=== PATIENT | male | born 1960 | race Two or more races ===

== ENCOUNTER 2016-11-06 11:45 | Inpatient (IN) | payer MEDICAID ==
[~2016-11-06] VITALS: Ht 175.3 cm; Wt 95.3 kg
[~2016-11-06 11:45] MED LIST: BENAZEPRIL HCL20 MG ORAL; CEPHALEXIN500 MG ORAL; GABAPENTIN600 MG ORAL; GLYBURIDE5 MG PO; IBUPROFEN600 MG ORAL; JANUVIA25 MG ORAL; METFORMIN HCL1000 M1 ORAL; PERCOCET 5-3251 EACH ORAL; VALACYCLOVIR500 MG ORAL; ZOSTRIX HP56.6 G1 TP
[2016-11-06] MEDS ORDERED: Vancomycin 1.5gm/D5W 300ml 325 ML IVPB ONE (12:45)
[2016-11-06] MEDS ORDERED: fentaNYL 100 mcg/2 mL IV ONE (12:45)
[2016-11-06] MEDS ORDERED: CLINDAMYCIN HC300 MG ORAL (12:49)
[2016-11-06] MEDS ORDERED: ACETAMINOPHEN-1 EAC1 ORAL (12:49)
--- NOTE | 2016-11-06 12:57 | Emergency Room Report ---
History of Present Illness General Chief Complaint: Skin Rash/Abscess Source: Patient, Medical Record Present Illness HPI 56YO M with 2 days severe pain to midline upper back below neck. Denies pain to neck, reduced ROM of neck, headache. Associated with chills, afebrile. Not taking anything for pain. Per EMR, was tx in Nov for shingles. Allergies: Coded Allergies: No Known Allergies (Verified Allergy, Mild, 01/23/07) Patient History Past Medical History: other - Shingles Past Surgical History: none Pertinent Family History: none Social History: Denies: alcohol use, drug use, smoking Immunizations: UTD Reviewed Nursing Documentation: PMH: Agreed, PSxH: Agreed Nursing Documentation-PMH Hx Hypertension: Yes Hx Diabetes: Yes Review of Systems All Other Systems: negative except mentioned in HPI Physical Exam Vital Signs Date Time Temp Pulse Resp B/P Pulse Ox O2 Delivery O2 Flow Rate FiO2 11/06/16 12:03 102.7 116 20 119/70 95 Room Air Sp02 EP Interpretation: reviewed, abnormal General Appearance: normal inspection, well appearing, no apparent distress, alert, GCS 15, non-toxic Head: normocephalic, atraumatic Eyes: bilateral eye EOMI, bilateral eye PERRL ENT: normal ENT inspection, hearing grossly normal, normal voice Neck: normal inspection, full range of motion, supple, no meningismus, no bony tend Respiratory: normal inspection, lungs clear, normal breath sounds, no respiratory distress, no retraction, no wheezing Cardiovascular #1: regular rate, rhythm, no edema Gastrointestinal: normal inspection, normal bowel sounds, non tender, soft, no guarding, no hernia Genitourinary: no CVA tenderness Musculoskeletal: normal inspection, back normal, normal range of motion, Brayden' s Sign negative Neurologic: normal inspection, alert, oriented x3, responsive, electronic die maker III-XII nml as tested, motor strength/tone normal, speech normal Psychiatric: normal inspection, judgement/insight normal, mood/affect normal Skin: normal inspection, normal color, other - Below neck midline of shoulders : there is an 8 cm area square shaped of induration, very tender to palpation. Middle of this area are 2 pustules, not actively draining. This area overlies multiple areas of burned out vesicels on back, left side of neck and face Medical Decision Making Diagnostic Impression: Primary Impression: Abscess Additional Impressions: Sepsis affecting skin Diabetes Qualified Codes: E11.9 - Type 2 diabetes mellitus without complications ER Course 56YOM with large area of cellulitis vs abscess to midline nape. VS significant for tachycardia, fever SIRS criteria met ?sepsis although normotensive, not appearing systemically ill Labs: 17K. Glucose >300 IV Abx given Blood Cx pending PNA ruled out as source of sepsis on normal CXR Endorsed for transfer to outside hospital at 325pm Tele bed recommended for SIRS/sepsis Rhythm Strip Diag. Results EP Interpretation: yes Rate: 88 Rhythm: NSR, no PVC's, no ectopy Chest X-Ray Diagnostic Results EP Interpretation: Yes Findings: no consolidation, no effusion, no pneumothorax, no acute cardiopulmonary disease Number of Views: 1 Last Vital Signs Date Time Temp Pulse Resp B/P Pulse Ox O2 Delivery O2 Flow Rate FiO2 11/06/16 12:03 102.7 116 20 119/70 95 Room Air Status: improved Disposition: ADMITTED INPATIENT Condition: Serious Scripts Acetaminophen With Codeine (T#3) (TYLENOL #3 TAB*) Y Tab 2 TAB ORAL Q6H Y for For Pain for 10 Days, #30 TAB Prov: STAS LEDESMA M.D. 11/06/16 Clindamycin Hcl (CLINDAMYCIN HCL) 300 Mg Capsule 600 MG ORAL THREE TIMES A DAY for 10 Days, #60 CAP Prov: STAS LEDESMA M.D. 11/06/16 Referrals: [facility],REFERRING (PCP) Patient Instructions: Abscess Additional Instructions: - Take ALL the antibiotics as prescribed - Take T#3 as needed for pain - Return to ER for worsening pain, abscess or other concerning symptoms and you will likely be admitted for recommended IV antibiotics STAS LEDESMA M.D. Nov 06, 2016 12:57
[2016-11-06 13:00] VITALS: BP 137/76
[2016-11-06] MEDS ORDERED: Unasyn 3gm Inj ONE (13:04)
[2016-11-06] MEDS ORDERED: Acetaminophen 500mg (ES) tab ORAL ONE ×2 (13:04→13:15)
[2016-11-06] MEDS: Ampicillin/Sulbactam Sod 3 GM in NS 110 ML IV SCH ×2 (13:07→18:45)
[2016-11-06 13:22] LABS: BASOPHILS % (AUTO) 1.7 % (0.0-2.0); EOSINOPHILS % (AUTO) 0.1 % (0.0-3.0); LYMPHOCYTES % (AUTO) 9.9 % (20.0-45.0); MEAN CORPUSCULAR HGB CONC 33.9 G/DL (32.0-36.0); MEAN CORPUSCULAR VOLUME 89 FL (80-99); MEAN PLATELET VOLUME 8.2 FL (6.5-10.1); MONOCYTES % (AUTO) 11.6 % (1.0-10.0); NEUTROPHILS % (AUTO) 76.7 % (45.0-75.0); PLATELET COUNT 244 K/UL (150-450); RED BLOOD COUNT 5.16 M/UL (4.70-6.10); RED CELL DISTRIBUTION WIDTH 11.3 % (11.6-14.8)
[2016-11-06 13:32] LABS: ALANINE AMINOTRANSFERASE 16 U/L (3-41); ALBUMIN/GLOBULIN RATIO 1.1 (1.0-2.7); ANION GAP 16 (5-15); ASPARTATE AMINO TRANSFERASE 11 U/L (5-40); CALCIUM 9.4 mg/dL (8.6-10.2); CARBON DIOXIDE 26 mEQ/L (20-30); CHLORIDE 87 mEQ/L (98-107); CREATININE 1.2 mg/dL (0.7-1.2); GLOMERULAR FILTRATION RATE > 60 mL/min (>60); HEMOLYSIS 4; POTASSIUM 4.5 mEQ/L (3.4-4.9); SODIUM 129 mEQ/L (135-145); TOTAL PROTEIN 8.1 g/dL (6.6-8.7)
[2016-11-06 13:44] LABS: BILIRUBIN,DIRECT 0.2 mg/dL (0.1-0.3)
[2016-11-06 15:14] VITALS: BP 113/63
[2016-11-06 16:06] VITALS: BP 133/84
[2016-11-06] MEDS ORDERED: DuoNeb 0.5-3(2.5)mg/3ml neb HHN PRN (17:45)
[2016-11-06] MEDS ORDERED: Miralax 17gm pkt ORAL PRN (17:45)
[2016-11-06] MEDS ORDERED: Nitroglycerin Subl 0.4mg tab (Bottle Of 25) SL PRN (17:45)
[2016-11-06 18:57] VITALS: BP 102/53
[2016-11-06 21:10] VITALS: BP 117/63
[2016-11-06] MEDS: Cefepime HCl 2 GM in D5W 110 ML IV SCH (22:07)
[2016-11-06] MEDS: Heparin 5000 units/ml inj SUBQ SCH (22:08)
[2016-11-06] MEDS: NovoLOG Insulin Flexpen SUBQ SCH (22:38)
[2016-11-07] VITALS: BP 107/53
[2016-11-07] MEDS: Vancomycin 750 MG in D5W 275 ML IVPB SCH ×2 (01:42→14:35)
[2016-11-07] MEDS: Promethazine/Codeine 5ml UD ORAL PRN (01:42)
[2016-11-07 04:00] VITALS: BP 123/59
[2016-11-07] MEDS: NovoLOG Insulin Flexpen SUBQ SCH ×4 (05:54→20:27)
[2016-11-07 07:21] LABS: MEAN CORPUSCULAR HEMOGLOBIN 30.8 PG (27.0-31.0); MEAN CORPUSCULAR HGB CONC 34.8 G/DL (32.0-36.0); MEAN CORPUSCULAR VOLUME 89 FL (80-99); RED BLOOD COUNT 4.38 M/UL (4.70-6.10); RED CELL DISTRIBUTION WIDTH 11.4 % (11.6-14.8); WHITE BLOOD COUNT 17.7 K/UL (4.8-10.8)
[2016-11-07 07:22] LABS: BASOPHILS % (AUTO) 0.6 % (0.0-2.0); EOSINOPHILS % (AUTO) 0.3 % (0.0-3.0); LYMPHOCYTES % (AUTO) 10.7 % (20.0-45.0); MEAN PLATELET VOLUME 8.3 FL (6.5-10.1); MONOCYTES % (AUTO) 12.8 % (1.0-10.0); NEUTROPHILS % (AUTO) 75.6 % (45.0-75.0); PLATELET COUNT 214 K/UL (150-450)
[2016-11-07 08:00] VITALS: BP 133/78
[2016-11-07 08:12] LABS: ALANINE AMINOTRANSFERASE 12 U/L (3-41); ANION GAP 16 (5-15); ASPARTATE AMINO TRANSFERASE 11 U/L (5-40); CALCIUM 8.8 mg/dL (8.6-10.2); CARBON DIOXIDE 23 mEQ/L (20-30); CHLORIDE 92 mEQ/L (98-107); CREATININE 0.9 mg/dL (0.7-1.2); GLOMERULAR FILTRATION RATE > 60 mL/min (>60); HEMOLYSIS 2; POTASSIUM 3.9 mEQ/L (3.4-4.9); SODIUM 131 mEQ/L (135-145); TOTAL PROTEIN 6.9 g/dL (6.6-8.7)
[2016-11-07] MEDS: Morphine Sulfate 2mg/ml Inj IVP PRN (09:16)
[2016-11-07] MEDS: Cefepime HCl 2 GM in D5W 110 ML IV SCH ×2 (09:16→20:26)
[2016-11-07] MEDS: sitaGLIPtin 50mg tab ORAL SCH (09:16)
[2016-11-07] MEDS: Heparin 5000 units/ml inj SUBQ SCH ×2 (09:19→20:29)
--- NOTE | 2016-11-07 10:58 | Consultation ---
Consult Note Consult Note asked to eval for low Na Chief Complaint: Skin Rash/Abscess 56YO M with 2 days severe pain to midline upper back below neck. Denies pain to neck, reduced ROM of neck, headache. Associated with chills, afebrile. Not taking anything for pain. Per EMR, was tx in Nov for shingles. No Known Allergies (Verified Allergy, Mild, 01/23/07) Past Medical History: other - Shingles Hx Hypertension: Yes Hx Diabetes: Yes Skin: normal inspection, normal color, other - Below neck midline of shoulders : there is an 8 cm area square shaped of induration, very tender to palpation. Middle of this area are 2 pustules, not actively draining. This area overlies multiple areas of burned out vesicels on back, left side of neck and face Assessment/Plan HypoNatremia: ? Depletional, Partly related to high sugar DM HTN Plan: Ua U Os NS infusion Monitor lytes and renal parameters- Keep BP and BS in check LEXIS GEE Nov 07, 2016 10:57
--- NOTE | 2016-11-07 11:48 | Diagnostic Imaging Report ---
Indication: Chest Pain Comparison: None A single view chest radiograph was obtained. Findings: Cardiomediastinal appearance is within normal limits for age. Pulmonary vascularity is appropriate. The diaphragmatic contour is smooth and costophrenic angles are sharp. No pleural effusions are identified. The bones are unremarkable. Impression: No acute findings
[2016-11-07 12:00] VITALS: BP 126/74
--- NOTE | 2016-11-07 12:12 | History and Physical ---
History of Present Illness General Date patient seen: Nov 07, 2016 Time patient seen: 12:00 Reason for Hospitalization: Skin Rash/Abscess Present Illness HPI 56y/old male with 2 days severe pain to midline upper back below neck. Denied neck pain, no reduced ROM of neck, no headache. Reported fevers and chills at home patient was treated in April for shingles. in ED febrile- 102.7, tachycardic laboratory work with leukocytosis- 17 Glucose >300 ( hx of DM) Na-129, lactic acid- WNl in ED blood cx were drawn IV Abx given PNA was ruled out as source of sepsis by stable CXR Patient was diagnosed with cellulitis vs abscess upper back patient was admitted for further management Allergies: Coded Allergies: No Known Allergies (Verified Allergy, Mild, 01/23/07) Medication History Scheduled Benazepril Hcl* (Benazepril Hcl*), 20 MG ORAL EVERY 12 HOURS, (Reported) Capsaicin (Zostrix Hp), 1 APPLIC TP BID Cephalexin* (Keflex*), 500 MG ORAL EVERY 12 HOURS Clindamycin Hcl (Clindamycin Hcl), 600 MG ORAL THREE TIMES A DAY Gabapentin* (Gabapentin*), 600 MG ORAL THREE TIMES A DAY Glyburide (Glyburide), 10 MG PO BID, (Reported) Metformin Hcl* (Metformin Hcl*), 1,000 MG ORAL BID, (Reported) Sitagliptin* (Januvia*), 50 MG ORAL DAILY, (Reported) Valacyclovir Hcl* (Valtrex*), 1,000 MG ORAL Q8HR Scheduled PRN Acetaminophen With Codeine (T#3) (Tylenol #3 Tab*), 2 TAB ORAL Q6H PRN for For Pain Ibuprofen* (Motrin*), 600 MG ORAL Q8H PRN for For Pain Oxycodone/Acetaminophen 5-325* (Percocet 5-325 Mg Tablet*), 1 TAB ORAL Q4H PRN for For Pain Patient History Healthcare decision maker Resuscitation status Full Code Advanced Directive on File No Past Medical/Surgical History Past Medical/Surgical History: (1) Shingles (2) Diabetes Review of Systems Constitutional: Reports: fever, malaise, weakness Eye: Reports: no symptoms ENT: Reports: no symptoms Respiratory: Reports: no symptoms Cardiovascular: Reports: no symptoms Gastrointestinal: Reports: no symptoms Genitourinary: Reports: no symptoms Musculoskeletal: Reports: no symptoms Skin: Reports: see HPI Psychiatric: Reports: no symptoms Neurological: Reports: no symptoms Endocrine: Reports: other - diabetes Hematologic/Lymphatic: Reports: no symptoms Physical Exam General Appearance: WD/WN, no apparent distress, alert - A/A/O x 3 Lines, tubes and drains: peripheral HEENT: normocephalic, atraumatic, anicteric, mucous membranes moist Neck: non-tender, supple Respiratory/Chest: chest wall non-tender, no respiratory distress, no accessory muscle use Cardiovascular/Chest: normal rate, regular rhythm, no gallop/murmur Abdomen: non tender, soft Extremities: normal range of motion, non-tender, no calf tenderness Skin Exam: other - Below neck midline of shoulders: there is an 8 cm area square shaped of induration, very tender to palpation. Middle of this area are 2 pustules, not actively draining. 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 grossly normal, no motor/sensory deficits, alert, oriented x 3, responsive Musculoskeletal: normal muscle bulk Last 24 Hour Vital Signs Date Time Temp Pulse Resp B/P Pulse Ox O2 Delivery O2 Flow Rate FiO2 11/07/16 09:46 99.1 11/07/16 08:00 99.1 100 20 133/78 97 Room Air 11/07/16 05:06 99.4 11/07/16 04:00 102.8 108 20 123/59 98 Room Air 11/07/16 00:00 99.6 107 20 107/53 97 Room Air 11/06/16 21:10 101.8 111 20 117/63 95 Room Air 11/06/16 19:48 98.1 99 27 102/53 96 Room Air 112 11/06/16 18:57 98.1 112 27 102/53 96 Room Air 11/06/16 16:06 98.9 99 22 133/84 100 Room Air 11/06/16 15:14 91 24 113/63 99 Room Air 11/06/16 14:55 100.3 11/06/16 13:38 100.3 11/06/16 13:00 102.2 111 24 137/76 97 Room Air 11/06/16 13:00 109 18 Room Air Intake and Output 11/06/16 11/07/16 19:00 07:00 Intake Total 1340 ml 240 ml Balance 1340 ml 240 ml Intake Oral 240 ml 240 ml IV Total 1100 ml Laboratory Tests Test 11/06/16 12:30 11/07/16 05:40 White Blood Count 17.0 K/UL (4.8-10.8) H 17.7 K/UL (4.8-10.8) H Red Blood Count 5.16 M/UL (4.70-6.10) 4.38 M/UL (4.70-6.10) L Hemoglobin 15.5 G/DL (14.2-18.0) 13.5 G/DL (14.2-18.0) L Hematocrit 45.7 % (42.0-52.0) 38.8 % (42.0-52.0) L Mean Corpuscular Volume 89 FL (80-99) 89 FL (80-99) Mean Corpuscular Hemoglobin 30.0 PG (27.0-31.0) 30.8 PG (27.0-31.0) Mean Corpuscular Hemoglobin Concent 33.9 G/DL (32.0-36.0) 34.8 G/DL (32.0-36.0) Red Cell Distribution Width 11.3 % (11.6-14.8) L 11.4 % (11.6-14.8) L Platelet Count 244 K/UL (150-450) 214 K/UL (150-450) Mean Platelet Volume 8.2 FL (6.5-10.1) 8.3 FL (6.5-10.1) Neutrophils (%) (Auto) 76.7 % (45.0-75.0) H 75.6 % (45.0-75.0) H Lymphocytes (%) (Auto) 9.9 % (20.0-45.0) L 10.7 % (20.0-45.0) L Monocytes (%) (Auto) 11.6 % (1.0-10.0) H 12.8 % (1.0-10.0) H Eosinophils (%) (Auto) 0.1 % (0.0-3.0) 0.3 % (0.0-3.0) Basophils (%) (Auto) 1.7 % (0.0-2.0) 0.6 % (0.0-2.0) Sodium Level 129 mEQ/L (135-145) L 131 mEQ/L (135-145) L Potassium Level 4.5 mEQ/L (3.4-4.9) 3.9 mEQ/L (3.4-4.9) Chloride Level 87 mEQ/L (98-107) L 92 mEQ/L (98-107) L Carbon Dioxide Level 26 mEQ/L (20-30) 23 mEQ/L (20-30) Anion Gap 16 (5-15) H 16 (5-15) H Blood Urea Nitrogen 12 mg/dL (7-23) 12 mg/dL (7-23) Creatinine 1.2 mg/dL (0.7-1.2) 0.9 mg/dL (0.7-1.2) Estimat Glomerular Filtration Rate > 60 mL/min (>60) > 60 mL/min (>60) Glucose Level 334 mg/dL (74-106) H 207 mg/dL (74-106) #H Lactic Acid Level 1.70 mmol/L (0.66-2.22) Calcium Level 9.4 mg/dL (8.6-10.2) 8.8 mg/dL (8.6-10.2) Total Bilirubin 1.2 mg/dL (0.0-1.2) 0.9 mg/dL (0.0-1.2) Direct Bilirubin 0.2 mg/dL (0.1-0.3) Aspartate Amino Transf (AST/SGOT) 11 U/L (5-40) 11 U/L (5-40) Alanine Aminotransferase (ALT/SGPT) 16 U/L (3-41) 12 U/L (3-41) Alkaline Phosphatase 68 U/L (40-129) 93 U/L (40-129) Total Protein 8.1 g/dL (6.6-8.7) 6.9 g/dL (6.6-8.7) Albumin 4.3 g/dL (3.5-5.2) 3.5 g/dL (3.5-5.2) Globulin 3.8 g/dL 3.4 g/dL Albumin/Globulin Ratio 1.1 (1.0-2.7) 1.0 (1.0-2.7) Height (Feet): 5 Height (Inches): 9.00 Weight (Pounds): 210 Medications Current Medications Medications (Trade) Dose Ordered Sig/Sarah Route PRN Reason Start Time Stop Time Status Last Admin Dose Admin Acetaminophen (Tylenol) 650 mg Q4H PRN ORAL fever 11/06/16 17:45 12/06/16 17:44 11/07/16 04:04 Albuterol/ Ipratropium 3 ml 3 ml EVERY 4 HOURS PRN HHN Shortness of Breath 11/06/16 17:45 11/11/16 17:44 Cefepime HCl 2 gm/ Dextrose 110 ml @ 220 mls/hr EVERY 12 HOURS IV 11/06/16 21:00 11/13/16 20:59 11/07/16 09:16 Dextrose (Dextrose 50%) STAT PRN IV Hypoglycemia 11/06/16 17:45 12/06/16 17:44 Gabapentin (Neurontin) 600 mg Q8HR ORAL 11/06/16 22:00 12/06/16 21:59 11/07/16 05:51 Heparin Sodium (Porcine) (Heparin 5000 units/ml) 5,000 units EVERY 12 HOURS SUBQ 11/06/16 21:00 12/06/16 20:59 11/07/16 09:19 Insulin Aspart (NovoLOG) BEFORE MEALS AND HS SUBQ 11/06/16 21:00 12/06/16 20:59 11/07/16 12:04 Morphine Sulfate (Morphine Sulfate) 2 mg EVERY 4 HOURS PRN IVP Moderate Pain (Pain Scale 4-6) 11/06/16 17:45 11/13/16 17:44 11/07/16 09:16 Nitroglycerin (Ntg) 0.4 mg Q5M PRN SL Prn Chest Pain 11/06/16 17:45 12/06/16 17:44 Ondansetron HCl (Zofran) 4 mg Q6H PRN IVP Nausea & Vomiting 11/06/16 17:45 12/06/16 17:44 Pantoprazole (Protonix) 40 mg EVERY 12 HOURS ORAL 11/07/16 11:00 12/07/16 10:59 11/07/16 11:54 Polyethylene Glycol (Miralax) 17 gm DAILYPRN PRN ORAL Constipation 11/06/16 17:45 12/06/16 17:44 Promethazine HCl/ Codeine 5 ml 5 ml Q6H PRN ORAL For Cough 11/06/16 23:00 12/06/16 22:59 11/07/16 01:42 Sitagliptin Phosphate (Januvia) 50 mg DAILY ORAL 11/07/16 09:00 12/07/16 08:59 11/07/16 09:16 Sodium Chloride (Sodium Chloride 1000ml bag) 1,000 ml @ 100 mls/hr Q10H IV 11/07/16 09:00 11/07/16 18:59 11/07/16 11:53 Temazepam (Restoril) 15 mg HSPRN PRN ORAL Insomnia 11/06/16 17:45 11/13/16 17:44 11/06/16 22:54 Valacyclovir HCl (Valtrex) 1,000 mg Q8HR ORAL 11/06/16 22:00 12/06/16 21:59 11/07/16 05:51 Vancomycin HCl (Vanco rx to dose) 1 ea DAILY PRN MISC . 11/06/16 20:03 12/06/16 20:02 Vancomycin HCl/ Dextrose (Vancomycin/D5W) 275 ml @ 183.3 mls/ hr Q12HR@0200,1400 IVPB 11/07/16 02:00 11/12/16 01:59 11/07/16 01:42 Assessment/Plan Assessment/Plan ASSESSMENT possible sepsis cellulitis upper back wound possible abscess upper back wound DM OOC ( with hyperglycemia) hx of shingles PLAN OF CARE MS floor IV abx ID consult fup with blood and wound cx if no improvement by tomorrow consider surgery eval pain management BS management with SS of insulin as needed and Januvia, check HgA1c DVT GI prophylaxis case discussed and evaluated by supervising physician Adelfo Stephen)Lorenza NP Nov 07, 2016 12:12
--- NOTE | 2016-11-07 12:40 | Infectious Diseases Prog Note ---
Assessment/Plan Assessment/Plan ID consult dictated # [id number] Subjective Allergies: Coded Allergies: No Known Allergies (Verified Allergy, Mild, 01/23/07) Objective Vital Signs Last 24 Hour Vital Signs Date Time Temp Pulse Resp B/P Pulse Ox O2 Delivery O2 Flow Rate FiO2 11/07/16 09:46 99.1 11/07/16 08:00 99.1 100 20 133/78 97 Room Air 11/07/16 05:06 99.4 11/07/16 04:00 102.8 108 20 123/59 98 Room Air 11/07/16 00:00 99.6 107 20 107/53 97 Room Air 11/06/16 21:10 101.8 111 20 117/63 95 Room Air 11/06/16 19:48 98.1 99 27 102/53 96 Room Air 112 11/06/16 18:57 98.1 112 27 102/53 96 Room Air 11/06/16 16:06 98.9 99 22 133/84 100 Room Air 11/06/16 15:14 91 24 113/63 99 Room Air 11/06/16 14:55 100.3 11/06/16 13:38 100.3 11/06/16 13:00 102.2 111 24 137/76 97 Room Air 11/06/16 13:00 109 18 Room Air Height (Feet): 5 Height (Inches): 9.00 Weight (Pounds): 210 Laboratory Tests Test 11/07/16 05:40 White Blood Count 17.7 K/UL (4.8-10.8) H Red Blood Count 4.38 M/UL (4.70-6.10) L Hemoglobin 13.5 G/DL (14.2-18.0) L Hematocrit 38.8 % (42.0-52.0) L Mean Corpuscular Volume 89 FL (80-99) Mean Corpuscular Hemoglobin 30.8 PG (27.0-31.0) Mean Corpuscular Hemoglobin Concent 34.8 G/DL (32.0-36.0) Red Cell Distribution Width 11.4 % (11.6-14.8) L Platelet Count 214 K/UL (150-450) Mean Platelet Volume 8.3 FL (6.5-10.1) Neutrophils (%) (Auto) 75.6 % (45.0-75.0) H Lymphocytes (%) (Auto) 10.7 % (20.0-45.0) L Monocytes (%) (Auto) 12.8 % (1.0-10.0) H Eosinophils (%) (Auto) 0.3 % (0.0-3.0) Basophils (%) (Auto) 0.6 % (0.0-2.0) Sodium Level 131 mEQ/L (135-145) L Potassium Level 3.9 mEQ/L (3.4-4.9) Chloride Level 92 mEQ/L (98-107) L Carbon Dioxide Level 23 mEQ/L (20-30) Anion Gap 16 (5-15) H Blood Urea Nitrogen 12 mg/dL (7-23) Creatinine 0.9 mg/dL (0.7-1.2) Estimat Glomerular Filtration Rate > 60 mL/min (>60) Glucose Level 207 mg/dL (74-106) #H Calcium Level 8.8 mg/dL (8.6-10.2) Total Bilirubin 0.9 mg/dL (0.0-1.2) Aspartate Amino Transf (AST/SGOT) 11 U/L (5-40) Alanine Aminotransferase (ALT/SGPT) 12 U/L (3-41) Alkaline Phosphatase 93 U/L (40-129) Total Protein 6.9 g/dL (6.6-8.7) Albumin 3.5 g/dL (3.5-5.2) Globulin 3.4 g/dL Albumin/Globulin Ratio 1.0 (1.0-2.7) Current Medications Medications (Trade) Dose Ordered Sig/Sarah Route PRN Reason Start Time Stop Time Status Last Admin Dose Admin Acetaminophen (Tylenol) 650 mg Q6H PRN ORAL fever 11/07/16 18:00 12/07/16 17:59 Albuterol/ Ipratropium 3 ml 3 ml EVERY 4 HOURS PRN HHN Shortness of Breath 11/06/16 17:45 11/11/16 17:44 Cefepime HCl 2 gm/ Dextrose 110 ml @ 220 mls/hr EVERY 12 HOURS IV 11/06/16 21:00 11/13/16 20:59 11/07/16 09:16 Dextrose (Dextrose 50%) STAT PRN IV Hypoglycemia 11/06/16 17:45 12/06/16 17:44 Gabapentin (Neurontin) 600 mg Q8HR ORAL 11/06/16 22:00 12/06/16 21:59 11/07/16 05:51 Heparin Sodium (Porcine) (Heparin 5000 units/ml) 5,000 units EVERY 12 HOURS SUBQ 11/06/16 21:00 12/06/16 20:59 11/07/16 09:19 Ibuprofen (Advil) 400 mg Q6H PRN ORAL for fever 11/07/16 12:30 12/07/16 12:29 Insulin Aspart (NovoLOG) BEFORE MEALS AND HS SUBQ 11/06/16 21:00 12/06/16 20:59 11/07/16 12:04 Morphine Sulfate (Morphine Sulfate) 2 mg EVERY 4 HOURS PRN IVP Moderate Pain (Pain Scale 4-6) 11/06/16 17:45 11/13/16 17:44 11/07/16 09:16 Nitroglycerin (Ntg) 0.4 mg Q5M PRN SL Prn Chest Pain 11/06/16 17:45 12/06/16 17:44 Ondansetron HCl (Zofran) 4 mg Q6H PRN IVP Nausea & Vomiting 11/06/16 17:45 12/06/16 17:44 Pantoprazole (Protonix) 40 mg EVERY 12 HOURS ORAL 11/07/16 11:00 12/07/16 10:59 11/07/16 11:54 Polyethylene Glycol (Miralax) 17 gm DAILYPRN PRN ORAL Constipation 11/06/16 17:45 12/06/16 17:44 Promethazine HCl/ Codeine 5 ml 5 ml Q6H PRN ORAL For Cough 11/06/16 23:00 12/06/16 22:59 11/07/16 01:42 Sitagliptin Phosphate (Januvia) 50 mg DAILY ORAL 11/07/16 09:00 12/07/16 08:59 11/07/16 09:16 Sodium Chloride (Sodium Chloride 1000ml bag) 1,000 ml @ 100 mls/hr Q10H IV 11/07/16 09:00 11/07/16 18:59 11/07/16 11:53 Temazepam (Restoril) 15 mg HSPRN PRN ORAL Insomnia 11/06/16 17:45 11/13/16 17:44 11/06/16 22:54 Vancomycin HCl (Vanco rx to dose) 1 ea DAILY PRN MISC . 11/06/16 20:03 12/06/16 20:02 Vancomycin HCl/ Dextrose (Vancomycin/D5W) 275 ml @ 183.3 mls/ hr Q12HR@0200,1400 IVPB 11/07/16 02:00 11/12/16 01:59 11/07/16 01:42 SHELBIE TORRES Nov 07, 2016 12:40
[2016-11-07 16:00] VITALS: BP 108/62
[2016-11-07 16:40] LABS: APPEARANCE,URINE CLEAR; KETONES,URINE 3+ (NEGATIVE); LEUKOCYTE ESTERASE ,URINE NEGATIVE (NEGATIVE); NITRITE,URINE NEGATIVE (NEGATIVE); PH,URINE 6 (4.5-8.0); PROTEIN,URINE 2+ (NEGATIVE); UROBILINOGEN,URINE NORMAL MG/DL (0.0-1.0)
[2016-11-07 17:01] LABS: BACTERIA,URINE OCCASIONAL /HPF; RBC,URINE 0-2 /HPF (0 - 0); WBC,URINE 0-2 /HPF (0 - 0)
[2016-11-07 20:19] VITALS: BP 126/79
--- NOTE | 2016-11-07 23:15 | Consultation ---
DATE OF CONSULTATION: INFECTIOUS DISEASE CONSULTATION PRIMARY ATTENDING: Estuardo Martinez M.D. REASON FOR CONSULT: Sepsis and abscess, carbuncle in the upper back. HISTORY OF PRESENT ILLNESS: A 56-year-old male admitted yesterday from home complaining of pain on upper back and lower neck. He has some diffuse range of movement of neck and headache at the time of admission. In the hospital, he had fever. Maximum temperature is 102.8. He has also diabetes mellitus and blood sugar was high at the time of admission. He is tachycardic. PAST MEDICAL HISTORY: Significant for diabetes mellitus type II on oral medications and has a history of shingle in April of last year. ALLERGIES: No known drug allergy. MEDICATIONS: Tylenol, ibuprofen, Protonix, Januvia, vancomycin, valacyclovir, cefepime, sliding-scale insulin, DuoNeb inhaler, morphine sulfate, MiraLax, Zofran, temazepam, and nitroglycerine. SOCIAL HISTORY: Originally from [place], lives in [facility] for 30 years or more. Recent travel outside of [facility]. 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 Drinks 2 shots of alcohol per day. No drug abuse, nonsmoker. He is and has two grown up children. REVIEW OF SYSTEMS: As in history of present illness, fever, chills, and pain. No coughing, no nausea, no vomiting, no diarrhea, no problem passing urine. PHYSICAL EXAMINATION: VITAL SIGNS: Temperature 99.1 degrees, pulse 100, and blood pressure 133/78. GENERAL APPEARANCE: Seems to be obese. BMI of 31. HEAD AND NECK: Wimer conjunctivae. HEART: Tachycardic. LUNGS: Clear. ABDOMEN: Soft, obese. EXTREMITIES: No edema. SKIN: There is a lesion almost in the midline and upper back. with skin abscess, draining pus. NEUROLOGIC: The patient is awake, alert, and oriented x3. LABORATORY DATA: Sodium of 131, potassium 3.9, chloride 92, bicarb 22, BUN 12, creatinine 0.9, glucose 207. WBC 17.7, hemoglobin 13.5, hematocrit 38.8, and platelets 414,000. Chest x-ray, no acute findings. IMPRESSION: 1. Sepsis with fever. 2. Leukocytosis. 3. Source of infection seems to an abscess in the right upper back. 4. The patient has uncontrolled diabetes mellitus type 2. 5. History of hypertension. 6. Obesity. RECOMMENDATION: We will continue with cefepime and vancomycin. Wound culture was obtained. He has surgical evaluation for drainage and abscess. Case was discussed with RN. We will discontinue valacyclovir because the patient does not seem to have herpes at this time. I thank Dr. Martinez for involving me in the care of this patient. John Small M.D. DR: YENNIFER JOB#: [id number] CC: [place]
[2016-11-08] VITALS (7 sets, daily range): BP systolic 105–133; BP diastolic 62–79
[2016-11-08] MEDS: Vancomycin 1250mg in D5W 275ml IVPB SCH ×2 (02:18→16:29)
[2016-11-08] MEDS: NovoLOG Insulin Flexpen SUBQ SCH ×4 (06:12→20:31)
[2016-11-08 07:05] LABS: BASOPHILS % (AUTO) 0.9 % (0.0-2.0); EOSINOPHILS % (AUTO) 0.6 % (0.0-3.0); LYMPHOCYTES % (AUTO) 6.4 % (20.0-45.0); MEAN CORPUSCULAR HEMOGLOBIN 31.4 PG (27.0-31.0); MEAN CORPUSCULAR HGB CONC 35.8 G/DL (32.0-36.0); MEAN CORPUSCULAR VOLUME 88 FL (80-99); MEAN PLATELET VOLUME 7.8 FL (6.5-10.1); MONOCYTES % (AUTO) 15.2 % (1.0-10.0); NEUTROPHILS % (AUTO) 76.9 % (45.0-75.0); PLATELET COUNT 195 K/UL (150-450); RED BLOOD COUNT 3.72 M/UL (4.70-6.10); RED CELL DISTRIBUTION WIDTH 11.4 % (11.6-14.8); WHITE BLOOD COUNT 16.2 K/UL (4.8-10.8)
[2016-11-08 08:07] LABS: ALANINE AMINOTRANSFERASE 15 U/L (3-41); ALBUMIN/GLOBULIN RATIO 0.8 (1.0-2.7); ANION GAP 16 (5-15); ASPARTATE AMINO TRANSFERASE 16 U/L (5-40); CARBON DIOXIDE 20 mEQ/L (20-30); CHLORIDE 91 mEQ/L (98-107); CHOLESTEROL 102 mg/dL (< 200); CHOLESTEROL/HDL RATIO 12.8 (3.3-4.4); CREATININE 1.1 mg/dL (0.7-1.2); GLOMERULAR FILTRATION RATE > 60 mL/min (>60); HEMOLYSIS 2; LDL CHOLESTEROL (CALC.) 54 mg/dL (60-99); MAGNESIUM 1.4 mg/dL (1.7-2.5); PHOSPHORUS 1.2 mg/dL (2.5-4.8); POTASSIUM 3.9 mEQ/L (3.4-4.9); SODIUM 127 mEQ/L (135-145); TOTAL PROTEIN 6.2 g/dL (6.6-8.7); URIC ACID 4.3 mg/dL (3.0-7.5)
[2016-11-08] MEDS: Cefepime HCl 2 GM in D5W 110 ML IV SCH (09:00)
[2016-11-08] MEDS: sitaGLIPtin 50mg tab ORAL SCH (09:02)
--- NOTE | 2016-11-08 09:06 | Infectious Diseases Prog Note ---
Assessment/Plan Assessment/Plan A: This a 56-year-old male Sepsis Abscess : carbuncle in the upper back Wnd Cx : GPC Fever Leukocytosis HTN Obesity DM P: cont pt on IV Vanco d# 2 , DC Cefepime Monitor CBC Monitor BMP Monitor Cultures ( Wnd, Blood ) Rec Sx eval for I& D Subjective Constitutional: Reports: fever Allergies: Coded Allergies: No Known Allergies (Verified Allergy, Mild, 01/23/07) Objective Vital Signs Last 24 Hour Vital Signs Date Time Temp Pulse Resp B/P Pulse Ox O2 Delivery O2 Flow Rate FiO2 11/08/16 05:16 98.2 11/08/16 04:26 102.0 114 21 133/71 100 Room Air 11/08/16 00:04 97.0 101 21 116/62 98 Room Air 11/07/16 21:27 99.7 11/07/16 20:19 100.2 117 22 126/79 97 Room Air 11/07/16 16:00 97.7 94 20 108/62 97 Room Air 11/07/16 12:00 101.5 100 20 126/74 95 Room Air 11/07/16 09:46 99.1 Height (Feet): 5 Height (Inches): 9.00 Weight (Pounds): 210 HEENT: anicteric Respiratory/Chest: normal breath sounds Cardiovascular: regular rhythm Abdomen: no organomegaly Microbiology Date/Time Source Procedure Growth Status 11/06/16 12:30 Blood Blood Culture - Preliminary NO GROWTH AFTER 24 HOURS Resulted 11/06/16 12:30 Blood Blood Culture - Preliminary NO GROWTH AFTER 24 HOURS Resulted 11/07/16 15:30 Wound Gram Stain - Final Resulted 11/07/16 15:30 Wound Wound Culture Pending Resulted Laboratory Tests Test 11/07/16 15:00 11/08/16 00:45 11/08/16 06:05 Urine Color Pale yellow Urine Appearance Clear Urine pH 6 (4.5-8.0) Urine Specific [place] 1.010 (1.005-1.035) Urine Protein 2+ (NEGATIVE) H Urine Glucose (UA) 3+ (NEGATIVE) H Urine Ketones 3+ (NEGATIVE) H Urine Occult Blood 1+ (NEGATIVE) H Urine Nitrite Negative (NEGATIVE) Urine Bilirubin Negative (NEGATIVE) Urine Urobilinogen Normal MG/DL (0.0-1.0) Urine Leukocyte Esterase Negative (NEGATIVE) Urine RBC 0-2 /HPF (0 - 0) H Urine WBC 0-2 /HPF (0 - 0) Urine Squamous Epithelial Cells None /LPF (NONE/OCC) Urine Bacteria Occasional /HPF (NONE) Urine Osmolality Pending Urine Random Sodium 30 mmol/L Vancomycin Level Trough 7.6 ug/mL (5.0-12.0) White Blood Count 16.2 K/UL (4.8-10.8) H Red Blood Count 3.72 M/UL (4.70-6.10) L Hemoglobin 11.7 G/DL (14.2-18.0) L Hematocrit 32.7 % (42.0-52.0) L Mean Corpuscular Volume 88 FL (80-99) Mean Corpuscular Hemoglobin 31.4 PG (27.0-31.0) H Mean Corpuscular Hemoglobin Concent 35.8 G/DL (32.0-36.0) Red Cell Distribution Width 11.4 % (11.6-14.8) L Platelet Count 195 K/UL (150-450) Mean Platelet Volume 7.8 FL (6.5-10.1) Neutrophils (%) (Auto) 76.9 % (45.0-75.0) H Lymphocytes (%) (Auto) 6.4 % (20.0-45.0) L Monocytes (%) (Auto) 15.2 % (1.0-10.0) H Eosinophils (%) (Auto) 0.6 % (0.0-3.0) Basophils (%) (Auto) 0.9 % (0.0-2.0) Sodium Level 127 mEQ/L (135-145) L Potassium Level 3.9 mEQ/L (3.4-4.9) Chloride Level 91 mEQ/L (98-107) L Carbon Dioxide Level 20 mEQ/L (20-30) Anion Gap 16 (5-15) H Blood Urea Nitrogen 12 mg/dL (7-23) Creatinine 1.1 mg/dL (0.7-1.2) Estimat Glomerular Filtration Rate > 60 mL/min (>60) Glucose Level 213 mg/dL (74-106) H Hemoglobin A1c 9.8 % (< 6.0) H Uric Acid 4.3 mg/dL (3.0-7.5) Calcium Level 8.0 mg/dL (8.6-10.2) L Phosphorus Level 1.2 mg/dL (2.5-4.8) L Magnesium Level 1.4 mg/dL (1.7-2.5) L Total Bilirubin 0.8 mg/dL (0.0-1.2) Gamma Glutamyl Transpeptidase 33 U/L (8-61) Aspartate Amino Transf (AST/SGOT) 16 U/L (5-40) Alanine Aminotransferase (ALT/SGPT) 15 U/L (3-41) Alkaline Phosphatase 69 U/L (40-129) Total Creatine Kinase 55 U/L (38-174) C-Reactive Protein, Quantitative 27.0 mg/dL (< 0.5) H Pro-B-Type Natriuretic Peptide 571 pg/mL (0-125) H Total Protein 6.2 g/dL (6.6-8.7) L Albumin 2.9 g/dL (3.5-5.2) L Globulin 3.3 g/dL Albumin/Globulin Ratio 0.8 (1.0-2.7) L Triglycerides Level 199 mg/dL (< 150) H Cholesterol Level 102 mg/dL (< 200) LDL Cholesterol 54 mg/dL (60-99) L HDL Cholesterol 8 mg/dL (> 60) Cholesterol/HDL Ratio 12.8 (3.3-4.4) H Current Medications Medications (Trade) Dose Ordered Sig/Sarah Route PRN Reason Start Time Stop Time Status Last Admin Dose Admin Acetaminophen (Tylenol) 650 mg Q6H PRN ORAL fever 11/07/16 18:00 12/07/16 17:59 11/07/16 20:28 Albuterol/ Ipratropium 3 ml 3 ml EVERY 4 HOURS PRN HHN Shortness of Breath 11/06/16 17:45 11/11/16 17:44 Cefepime HCl/ Dextrose (Maxipime/D5W) 110 ml @ 220 mls/hr EVERY 12 HOURS IV 11/06/16 21:00 11/13/16 20:59 11/07/16 20:26 Dextrose (Dextrose 50%) STAT PRN IV Hypoglycemia 11/06/16 17:45 12/06/16 17:44 Gabapentin (Neurontin) 600 mg Q8HR ORAL 11/06/16 22:00 12/06/16 21:59 11/08/16 06:11 Heparin Sodium (Porcine) (Heparin 5000 units/ml) 5,000 units EVERY 12 HOURS SUBQ 11/06/16 21:00 12/06/16 20:59 11/07/16 20:29 Ibuprofen 400 mg 400 mg Q6H PRN ORAL for fever 11/07/16 12:30 12/07/16 12:29 11/08/16 04:17 Insulin Aspart (NovoLOG) BEFORE MEALS AND HS SUBQ 11/06/16 21:00 12/06/16 20:59 11/08/16 06:12 Morphine Sulfate (Morphine Sulfate) 2 mg EVERY 4 HOURS PRN IVP Moderate Pain (Pain Scale 4-6) 11/06/16 17:45 11/13/16 17:44 11/07/16 09:16 Nitroglycerin (Ntg) 0.4 mg Q5M PRN SL Prn Chest Pain 11/06/16 17:45 12/06/16 17:44 Ondansetron HCl (Zofran) 4 mg Q6H PRN IVP Nausea & Vomiting 11/06/16 17:45 12/06/16 17:44 Pantoprazole (Protonix) 40 mg EVERY 12 HOURS ORAL 11/07/16 11:00 12/07/16 10:59 11/07/16 20:27 Polyethylene Glycol (Miralax) 17 gm DAILYPRN PRN ORAL Constipation 11/06/16 17:45 12/06/16 17:44 Promethazine HCl/ Codeine (Phenergan with Codeine) 5 ml Q6H PRN ORAL For Cough 11/06/16 23:00 12/06/16 22:59 11/07/16 01:42 Sitagliptin Phosphate (Januvia) 50 mg DAILY ORAL 11/07/16 09:00 12/07/16 08:59 11/07/16 09:16 Temazepam (Restoril) 15 mg HSPRN PRN ORAL Insomnia 11/06/16 17:45 11/13/16 17:44 11/06/16 22:54 Vancomycin HCl (Vanco rx to dose) 1 ea DAILY PRN MISC . 11/06/16 20:03 12/06/16 20:02 Vancomycin HCl/ Dextrose (Vancomycin/D5W) 275 ml @ 183.708 mls/hr Q12H IVPB 11/08/16 02:30 11/13/16 02:29 11/08/16 02:18 JESSICA DANIELS M.D. Nov 08, 2016 09:06
[2016-11-08] MEDS: Heparin 5000 units/ml inj SUBQ SCH ×2 (09:09→20:32)
[2016-11-08] MEDS ORDERED: Potassium Phosphate 30 MM in NS 275 ML IV ONE (11:00)
[2016-11-08] MEDS: Morphine Sulfate 2mg/ml Inj IVP PRN ×3 (11:22→20:30)
--- NOTE | 2016-11-08 11:57 | General Progress Note ---
Assessment/Plan Status: unchanged Status Narrative Na low Assessment/Plan HypoNatremia: ? Depletional, Partly related to high sugar DM HTN Abscess : carbuncle in the upper back Wnd Cx : GPC Plan: Ua U Os NS infusion Monitor lytes and renal parameters- Keep BP and BS in check mag and Phos supplement Subjective ROS Limited/Unobtainable: No Constitutional: Reports: malaise, weakness Allergies: Coded Allergies: No Known Allergies (Verified Allergy, Mild, 01/23/07) Objective Last 24 Hour Vital Signs Date Time Temp Pulse Resp B/P Pulse Ox O2 Delivery O2 Flow Rate FiO2 11/08/16 08:00 97.6 92 20 105/67 100 Room Air 11/08/16 05:16 98.2 11/08/16 04:26 102.0 114 21 133/71 100 Room Air 11/08/16 00:04 97.0 101 21 116/62 98 Room Air 11/07/16 21:27 99.7 11/07/16 20:19 100.2 117 22 126/79 97 Room Air 11/07/16 16:00 97.7 94 20 108/62 97 Room Air 11/07/16 12:00 101.5 100 20 126/74 95 Room Air Intake and Output 11/07/16 11/08/16 19:00 07:00 Intake Total 300 ml 385.000 ml Balance 300 ml 385.000 ml Intake Oral 300 ml IV Total 385.000 ml # Voids 4 2 Laboratory Tests 11/07/16 15:00: Urine Color Pale yellow, Urine Appearance Clear, Urine pH 6, Urine Specific [place] 1.010, Urine Protein 2+H, Urine Glucose (UA) 3+H, Urine Ketones 3+H, Urine Occult Blood 1+H, Urine Nitrite Negative, Urine Bilirubin Negative, Urine Urobilinogen Normal, Urine Leukocyte Esterase Negative, Urine RBC 0-2H, Urine WBC 0-2, Urine Squamous Epithelial Cells None, Urine Bacteria Occasional, Urine Osmolality [Pending], Urine Random Sodium 30 11/08/16 00:45: Vancomycin Level Trough 7.6 11/08/16 06:05: White Blood Count 16.2H, Red Blood Count 3.72L, Hemoglobin 11.7L, Hematocrit 32.7L, Mean Corpuscular Volume 88, Mean Corpuscular Hemoglobin 31.4H, Mean Corpuscular Hemoglobin Concent 35.8, Red Cell Distribution Width 11.4L, Platelet Count 195, Mean Platelet Volume 7.8, Neutrophils (%) (Auto) 76.9H, Lymphocytes (%) (Auto) 6.4L, Monocytes (%) (Auto) 15.2H, Eosinophils (%) (Auto) 0.6, Basophils (%) (Auto) 0.9, Sodium Level 127L, Potassium Level 3.9, Chloride Level 91L, Carbon Dioxide Level 20, Anion Gap 16H, Blood Urea Nitrogen 12, Creatinine 1.1, Estimat Glomerular Filtration Rate > 60, Glucose Level 213H, Hemoglobin A1c 9.8H, Uric Acid 4.3, Calcium Level 8.0L, Phosphorus Level 1.2L, Magnesium Level 1.4L, Total Bilirubin 0.8, Gamma Glutamyl Transpeptidase 33, Aspartate Amino Transf (AST/SGOT) 16, Alanine Aminotransferase (ALT/SGPT) 15, Alkaline Phosphatase 69, Total Creatine Kinase 55, C-Reactive Protein, Quantitative 27.0H, Pro-B-Type Natriuretic Peptide 571H, Total Protein 6.2L, Albumin 2.9L, Globulin 3.3, Albumin/Globulin Ratio 0.8L, Triglycerides Level 199H, Cholesterol Level 102, LDL Cholesterol 54L, HDL Cholesterol 8, Cholesterol /HDL Ratio 12.8H Height (Feet): 5 Height (Inches): 9.00 Weight (Pounds): 210 General Appearance: mild distress Cardiovascular: tachycardia Respiratory/Chest: decreased breath sounds Abdomen: soft LEXIS GEE Nov 08, 2016 11:57
[2016-11-08] MEDS ORDERED: Lidocaine 1% 10mg/ml/Epi 0.005mg/ml 30ml vial INJ ONE (12:30)
--- NOTE | 2016-11-08 12:46 | Consultation ---
History of Present Illness General Date patient seen: Nov 08, 2016 Chief Complaint: Skin Rash/Abscess Present Illness HPI 56 M with medical problems as noted below presents with worsening upper back abscess. As per patient, he first noted a small lump that was painful in his upper mid back. he attempted to "squeeze" the lump and continued to do so for a few days. He would evacuate some purulent fluid and was the wound. After a few days the lump began to grow and become more painful. He waited approximately a week and started noticing some swelling of his upper extremities and shoulders. He then decided to seek medical attention as it was not improving. Otherwise well. no similar episodes prior. no recent life changes or travel. Surgery called to evaluate wound. Allergies: Coded Allergies: No Known Allergies (Verified Allergy, Mild, 01/23/07) Medication History Scheduled Benazepril Hcl* (Benazepril Hcl*), 20 MG ORAL EVERY 12 HOURS, (Reported) Capsaicin (Zostrix Hp), 1 APPLIC TP BID Cephalexin* (Keflex*), 500 MG ORAL EVERY 12 HOURS Clindamycin Hcl (Clindamycin Hcl), 600 MG ORAL THREE TIMES A DAY Gabapentin* (Gabapentin*), 600 MG ORAL THREE TIMES A DAY Glyburide (Glyburide), 10 MG PO BID, (Reported) Metformin Hcl* (Metformin Hcl*), 1,000 MG ORAL BID, (Reported) Sitagliptin* (Januvia*), 50 MG ORAL DAILY, (Reported) Valacyclovir Hcl* (Valtrex*), 1,000 MG ORAL Q8HR Scheduled PRN Acetaminophen With Codeine (T#3) (Tylenol #3 Tab*), 2 TAB ORAL Q6H PRN for For Pain Ibuprofen* (Motrin*), 600 MG ORAL Q8H PRN for For Pain Oxycodone/Acetaminophen 5-325* (Percocet 5-325 Mg Tablet*), 1 TAB ORAL Q4H PRN for For Pain Patient History History Provided By: Patient Healthcare decision maker Resuscitation status Full Code Advanced Directive on File No Past Medical/Surgical History Past Medical/Surgical History: (1) Cellulitis (2) Sepsis affecting skin (3) Diabetes (4) Abscess (5) Shingles Review of Systems Constitutional: Denies: chills, fever, malaise, no symptoms, other, see HPI, sweats, weakness Eye: Denies: acuity changes, blurred vision, discharge, double vision, eye pain , no symptoms, nose congestion, nose pain, other, see HPI, tearing ENT: Denies: ear discharge, ear pain, hearing loss, mouth pain, nasal discharge , no symptoms, nose congestion, nose pain, other, see HPI, throat pain, throat swelling Respiratory: Denies: NICHOLAS, cough, no symptoms, orthopnea, other, see HPI, shortness of breath, sputum, stridor, wheezing Cardiovascular: Denies: PND, chest pain, edema, no symptoms, other, palpitations, see HPI, syncope Gastrointestinal: Denies: abdominal pain, constipation, diarrhea, hematemesis, melena, nausea, no symptoms, other, see HPI, vomiting Genitourinary: Denies: discharge, dysuria, frequency, hematuria, incontinence, no symptoms, other, pain, retention, see HPI, urgency, vag bleed/dc Musculoskeletal: Denies: back pain, gout, joint pain, joint swelling, muscle pain, muscle stiffness, no symptoms, other, see HPI Skin: Denies: change in color, change in hair/nails, dryness, lesions, no symptoms, other, rash, see HPI Psychiatric: Denies: HI, SI, anxiety, depressed feelings, emotional problems, hallucinations, no symptoms, other, prior hx, see HPI Neurological: Denies: dizziness, focal weakness, headache, no symptoms, numbness, other, paresthesia, see HPI, seizure, syncope, tingling, tremors Endocrine: Denies: excessive sweating, flushing, increased thirst, increased urine, intolerance to temperature, no symptoms, other, see HPI, unexplained weight loss Hematologic/Lymphatic: Denies: anemia, blood clots, diathesis, easy bleeding, easy bruising, no symptoms, other, see HPI, swollen glands All Other Systems: negative except mentioned in HPI Physical Exam General Appearance: no apparent distress, alert Lines, tubes and drains: peripheral HEENT: normocephalic, atraumatic, PERRL Neck: normal inspection Respiratory/Chest: lungs clear, normal breath sounds, no respiratory distress, no accessory muscle use Cardiovascular/Chest: normal peripheral pulses, normal rate, regular rhythm Abdomen: normal bowel sounds, non tender, soft, no organomegaly Extremities: normal range of motion Skin Exam: normal pigmentation Neurologic: adult neurologist II-XII grossly normal, alert, oriented x 3, responsive Physical Exam Narrative upper midline back there is an area of cellulitis surrounding a small abscess/ phlegmon. tender, erythema, small purulent drainage, warm. mild swelling around bilateral shoudlers and arms. Last 24 Hour Vital Signs Date Time Temp Pulse Resp B/P Pulse Ox O2 Delivery O2 Flow Rate FiO2 11/08/16 12:00 97.3 90 20 108/69 99 Room Air 11/08/16 08:00 97.6 92 20 105/67 100 Room Air 11/08/16 05:16 98.2 11/08/16 04:26 102.0 114 21 133/71 100 Room Air 11/08/16 00:04 97.0 101 21 116/62 98 Room Air 11/07/16 21:27 99.7 11/07/16 20:19 100.2 117 22 126/79 97 Room Air 11/07/16 16:00 97.7 94 20 108/62 97 Room Air Intake and Output 11/07/16 11/08/16 19:00 07:00 Intake Total 300 ml 385.000 ml Balance 300 ml 385.000 ml Intake Oral 300 ml IV Total 385.000 ml # Voids 4 2 Laboratory Tests Test 11/07/16 15:00 11/08/16 00:45 11/08/16 06:05 Urine Color Pale yellow Urine Appearance Clear Urine pH 6 (4.5-8.0) Urine Specific [place] 1.010 (1.005-1.035) Urine Protein 2+ (NEGATIVE) H Urine Glucose (UA) 3+ (NEGATIVE) H Urine Ketones 3+ (NEGATIVE) H Urine Occult Blood 1+ (NEGATIVE) H Urine Nitrite Negative (NEGATIVE) Urine Bilirubin Negative (NEGATIVE) Urine Urobilinogen Normal MG/DL (0.0-1.0) Urine Leukocyte Esterase Negative (NEGATIVE) Urine RBC 0-2 /HPF (0 - 0) H Urine WBC 0-2 /HPF (0 - 0) Urine Squamous Epithelial Cells None /LPF (NONE/OCC) Urine Bacteria Occasional /HPF (NONE) Urine Osmolality Pending Urine Random Sodium 30 mmol/L Vancomycin Level Trough 7.6 ug/mL (5.0-12.0) White Blood Count 16.2 K/UL (4.8-10.8) H Red Blood Count 3.72 M/UL (4.70-6.10) L Hemoglobin 11.7 G/DL (14.2-18.0) L Hematocrit 32.7 % (42.0-52.0) L Mean Corpuscular Volume 88 FL (80-99) Mean Corpuscular Hemoglobin 31.4 PG (27.0-31.0) H Mean Corpuscular Hemoglobin Concent 35.8 G/DL (32.0-36.0) Red Cell Distribution Width 11.4 % (11.6-14.8) L Platelet Count 195 K/UL (150-450) Mean Platelet Volume 7.8 FL (6.5-10.1) Neutrophils (%) (Auto) 76.9 % (45.0-75.0) H Lymphocytes (%) (Auto) 6.4 % (20.0-45.0) L Monocytes (%) (Auto) 15.2 % (1.0-10.0) H Eosinophils (%) (Auto) 0.6 % (0.0-3.0) Basophils (%) (Auto) 0.9 % (0.0-2.0) Sodium Level 127 mEQ/L (135-145) L Potassium Level 3.9 mEQ/L (3.4-4.9) Chloride Level 91 mEQ/L (98-107) L Carbon Dioxide Level 20 mEQ/L (20-30) Anion Gap 16 (5-15) H Blood Urea Nitrogen 12 mg/dL (7-23) Creatinine 1.1 mg/dL (0.7-1.2) Estimat Glomerular Filtration Rate > 60 mL/min (>60) Glucose Level 213 mg/dL (74-106) H Hemoglobin A1c 9.8 % (< 6.0) H Uric Acid 4.3 mg/dL (3.0-7.5) Calcium Level 8.0 mg/dL (8.6-10.2) L Phosphorus Level 1.2 mg/dL (2.5-4.8) L Magnesium Level 1.4 mg/dL (1.7-2.5) L Total Bilirubin 0.8 mg/dL (0.0-1.2) Gamma Glutamyl Transpeptidase 33 U/L (8-61) Aspartate Amino Transf (AST/SGOT) 16 U/L (5-40) Alanine Aminotransferase (ALT/SGPT) 15 U/L (3-41) Alkaline Phosphatase 69 U/L (40-129) Total Creatine Kinase 55 U/L (38-174) C-Reactive Protein, Quantitative 27.0 mg/dL (< 0.5) H Pro-B-Type Natriuretic Peptide 571 pg/mL (0-125) H Total Protein 6.2 g/dL (6.6-8.7) L Albumin 2.9 g/dL (3.5-5.2) L Globulin 3.3 g/dL Albumin/Globulin Ratio 0.8 (1.0-2.7) L Triglycerides Level 199 mg/dL (< 150) H Cholesterol Level 102 mg/dL (< 200) LDL Cholesterol 54 mg/dL (60-99) L HDL Cholesterol 8 mg/dL (> 60) Cholesterol/HDL Ratio 12.8 (3.3-4.4) H Microbiology Date/Time Source Procedure Growth Status 11/07/16 15:30 Wound Gram Stain - Final Resulted 11/07/16 15:30 Wound Wound Culture - Preliminary Resulted Height (Feet): 5 Height (Inches): 9.00 Weight (Pounds): 210 Medications Current Medications Medications (Trade) Dose Ordered Sig/Sarah Route PRN Reason Start Time Stop Time Status Last Admin Dose Admin Acetaminophen (Tylenol) 650 mg Q6H PRN ORAL fever 11/07/16 18:00 12/07/16 17:59 11/07/16 20:28 Albuterol/ Ipratropium (DuoNeb 0.5-3(2.5)mg/3ml) 3 ml EVERY 4 HOURS PRN HHN Shortness of Breath 11/06/16 17:45 11/11/16 17:44 Dextrose (Dextrose 50%) STAT PRN IV Hypoglycemia 11/06/16 17:45 12/06/16 17:44 Gabapentin (Neurontin) 600 mg Q8HR ORAL 11/06/16 22:00 12/06/16 21:59 11/08/16 06:11 Heparin Sodium (Porcine) (Heparin 5000 units/ml) 5,000 units EVERY 12 HOURS SUBQ 11/06/16 21:00 12/06/16 20:59 11/08/16 09:09 Ibuprofen 400 mg 400 mg Q6H PRN ORAL for fever 11/07/16 12:30 12/07/16 12:29 11/08/16 04:17 Insulin Aspart (NovoLOG) BEFORE MEALS AND HS SUBQ 11/06/16 21:00 12/06/16 20:59 11/08/16 06:12 Magnesium Sulfate 100 ml @ 100 mls/hr Q1H IVPB 11/08/16 10:00 11/08/16 13:59 11/08/16 11:41 Morphine Sulfate (Morphine Sulfate) 2 mg EVERY 4 HOURS PRN IVP Moderate Pain (Pain Scale 4-6) 11/06/16 17:45 11/13/16 17:44 11/08/16 11:22 Nitroglycerin (Ntg) 0.4 mg Q5M PRN SL Prn Chest Pain 11/06/16 17:45 12/06/16 17:44 Ondansetron HCl (Zofran) 4 mg Q6H PRN IVP Nausea & Vomiting 11/06/16 17:45 12/06/16 17:44 Pantoprazole (Protonix) 40 mg EVERY 12 HOURS ORAL 11/07/16 11:00 12/07/16 10:59 11/08/16 09:02 Phosphorus (Phospha 250 Neutral) 250 mg THREE TIMES A DAY ORAL 11/08/16 13:00 12/08/16 12:59 Polyethylene Glycol (Miralax) 17 gm DAILYPRN PRN ORAL Constipation 11/06/16 17:45 12/06/16 17:44 Potassium Phosphate/Sodium Chloride (Potassium Phosphate/Sodium Chloride) 285 ml @ 47.5 mls/hr ONCE ONCE IV 11/08/16 11:00 11/08/16 16:59 Promethazine HCl/ Codeine (Phenergan with Codeine) 5 ml Q6H PRN ORAL For Cough 11/06/16 23:00 12/06/16 22:59 11/07/16 01:42 Sitagliptin Phosphate (Januvia) 50 mg DAILY ORAL 11/07/16 09:00 12/07/16 08:59 11/08/16 09:02 Temazepam (Restoril) 15 mg HSPRN PRN ORAL Insomnia 11/06/16 17:45 11/13/16 17:44 11/06/16 22:54 Vancomycin HCl (Vanco rx to dose) 1 ea DAILY PRN MISC . 11/06/16 20:03 12/06/16 20:02 Vancomycin HCl 1.25 gm/Dextrose 275 ml @ 183.708 mls/hr Q12H IVPB 11/08/16 02:30 11/13/16 02:29 11/08/16 02:18 Assessment/Plan Problem List: (1) Abscess Assessment & Plan: 56M upper midline back abscess. febrile 102, leukocytosis 16k, exam as noted above. recommend I&D at bedside cultures will be sent wound care with dressings after I&D IV Abx until afebrile and leukocytosis resolved. will continue to monitor. ICD Codes: L02.91 - Cutaneous abscess, unspecified SNOMED: [id number] Roderick Tolentino Nov 08, 2016 12:46
--- NOTE | 2016-11-08 12:48 | Operative Note - PDOC ---
Operative Note Operative Note Date of Operation/Procedure: Nov 08, 2016 Pre-op Diagnosis: upper midline back abscess Procedure: incision and drainage of upper midline back abscess. Post-op Diagnosis: same as pre-op Operative Findings: consistent w/pre-op dx studies Surgeon: faustino Anesthesiologist: jim Anesthesia: local Specimen: yes - culture Complications: none Condition: stable Estimated Blood Loss: none Drains: none Implant(s) used?: No Indications for Procedure 56M upper midline back abscess for 1 week that is worsening. febrile, leukocytosis, exam with abscess and cellulitis/phlegmon. Description of Procedure wound cleaned. local infiltrated. fresh #11 scalpel used to make incision over are of fluctuance. pus evacuated and cultured. wound cleaned with normal saline. packing and dressings placed. patient tolerated well. Roderick Tolentino Nov 08, 2016 12:48
--- NOTE | 2016-11-08 12:48 | Pre-Procedure Note/Attestation ---
Pre-Procedure Note/Attestation Complete Prior to Procedure Planned Procedure: not applicable Procedure Narrative: I&D upper midline back abscess. Indications for Procedure Pre-Operative Diagnosis: upper midline back abscess Attestation I attest that I discussed the nature of the procedure; its benefits; risks and complications; and alternatives (and the risks and benefits of such alternatives ), prior to the procedure, with the patient (or the patient's legal public utilities sales representative). I attest that, if there was a reasonable possibility of needing a blood transfusion, the patient (or the patient's legal public utilities sales representative) was given the [facility] standardized written summary, pursuant to the Brandan Reardan Blood Safety Act ([place] Health and Safety Code # 1645, as amended). I attest that I re-evaluated the patient just prior to the surgery and that there has been no change in the patient's H&P, except as documented below: Roderick Tolentino Nov 08, 2016 12:48
[2016-11-08] MEDS: Phospha 250 Neutral tab ORAL SCH ×2 (13:41→18:14)
--- NOTE | 2016-11-08 14:10 | Diagnostic Imaging Report ---
APPROVED REPORT CPT Code: 76924 Present Symptoms Lower Extremity Pain: Bilateral BILATERAL: Imaging reveals a patent deep venous system bilaterally. There is no evidence of thrombus within the femoral, popliteal or tibial segments. The greater saphenous veins are also within normal limits. Doppler indicates normal spontaneous flow within these segments.
--- NOTE | 2016-11-08 15:45 | Pulmonology Progress Note ---
Assessment/Plan Problems: (1) Cellulitis (2) Abscess (3) Diabetes Assessment/Plan Iv antibiotics check cultures f/u electroltyes Subjective ROS Limited/Unobtainable: No Interval Events: s/p ID, little fluid collected Constitutional: Reports: no symptoms HEENT: Repors: no symptoms Respiratory: Reports: no symptoms Allergies: Coded Allergies: No Known Allergies (Verified Allergy, Mild, 01/23/07) Objective Last 24 Hour Vital Signs Date Time Temp Pulse Resp B/P Pulse Ox O2 Delivery O2 Flow Rate FiO2 11/08/16 12:00 97.3 90 20 108/69 99 Room Air 11/08/16 08:00 97.6 92 20 105/67 100 Room Air 11/08/16 05:16 98.2 11/08/16 04:26 102.0 114 21 133/71 100 Room Air 11/08/16 00:04 97.0 101 21 116/62 98 Room Air 11/07/16 21:27 99.7 11/07/16 20:19 100.2 117 22 126/79 97 Room Air 11/07/16 16:00 97.7 94 20 108/62 97 Room Air Intake and Output 11/07/16 11/08/16 19:00 07:00 Intake Total 300 ml 385.000 ml Balance 300 ml 385.000 ml Intake Oral 300 ml IV Total 385.000 ml # Voids 4 2 General Appearance: WD/WN HEENT: normocephalic, atraumatic Respiratory/Chest: chest wall non-tender, lungs clear, normal breath sounds Cardiovascular: normal peripheral pulses, normal rate Abdomen: normal bowel sounds, soft, non tender, no scars Extremities: no cyanosis Skin: no rash Microbiology Date/Time Source Procedure Growth Status 11/06/16 12:30 Blood Blood Culture - Preliminary NO GROWTH AFTER 24 HOURS Resulted 11/06/16 12:30 Blood Blood Culture - Preliminary NO GROWTH AFTER 24 HOURS Resulted 11/07/16 15:30 Wound Gram Stain - Final Resulted 11/07/16 15:30 Wound Wound Culture - Preliminary Resulted Laboratory Tests 11/08/16 00:45: Vancomycin Level Trough 7.6 11/08/16 06:05: White Blood Count 16.2H, Red Blood Count 3.72L, Hemoglobin 11.7L, Hematocrit 32.7L, Mean Corpuscular Volume 88, Mean Corpuscular Hemoglobin 31.4H, Mean Corpuscular Hemoglobin Concent 35.8, Red Cell Distribution Width 11.4L, Platelet Count 195, Mean Platelet Volume 7.8, Neutrophils (%) (Auto) 76.9H, Lymphocytes (%) (Auto) 6.4L, Monocytes (%) (Auto) 15.2H, Eosinophils (%) (Auto) 0.6, Basophils (%) (Auto) 0.9, Sodium Level 127L, Potassium Level 3.9, Chloride Level 91L, Carbon Dioxide Level 20, Anion Gap 16H, Blood Urea Nitrogen 12, Creatinine 1.1, Estimat Glomerular Filtration Rate > 60, Glucose Level 213H, Hemoglobin A1c 9.8H, Uric Acid 4.3, Calcium Level 8.0L, Phosphorus Level 1.2L, Magnesium Level 1.4L, Total Bilirubin 0.8, Gamma Glutamyl Transpeptidase 33, Aspartate Amino Transf (AST/SGOT) 16, Alanine Aminotransferase (ALT/SGPT) 15, Alkaline Phosphatase 69, Total Creatine Kinase 55, C-Reactive Protein, Quantitative 27.0H, Pro-B-Type Natriuretic Peptide 571H, Total Protein 6.2L, Albumin 2.9L, Globulin 3.3, Albumin/Globulin Ratio 0.8L, Triglycerides Level 199H, Cholesterol Level 102, LDL Cholesterol 54L, HDL Cholesterol 8, Cholesterol /HDL Ratio 12.8H Current Medications Medications (Trade) Dose Ordered Sig/Sarah Route PRN Reason Start Time Stop Time Status Last Admin Dose Admin Acetaminophen (Tylenol) 650 mg Q6H PRN ORAL fever 11/07/16 18:00 12/07/16 17:59 11/07/16 20:28 Albuterol/ Ipratropium (DuoNeb 0.5-3(2.5)mg/3ml) 3 ml EVERY 4 HOURS PRN HHN Shortness of Breath 11/06/16 17:45 11/11/16 17:44 Dextrose (Dextrose 50%) STAT PRN IV Hypoglycemia 11/06/16 17:45 12/06/16 17:44 Gabapentin (Neurontin) 600 mg Q8HR ORAL 11/06/16 22:00 12/06/16 21:59 11/08/16 13:41 Heparin Sodium (Porcine) (Heparin 5000 units/ml) 5,000 units EVERY 12 HOURS SUBQ 11/06/16 21:00 12/06/16 20:59 11/08/16 09:09 Ibuprofen 400 mg 400 mg Q6H PRN ORAL for fever 11/07/16 12:30 12/07/16 12:29 11/08/16 04:17 Insulin Aspart (NovoLOG) BEFORE MEALS AND HS SUBQ 11/06/16 21:00 12/06/16 20:59 11/08/16 12:43 Morphine Sulfate (Morphine Sulfate) 2 mg EVERY 4 HOURS PRN IVP Moderate Pain (Pain Scale 4-6) 11/06/16 17:45 11/13/16 17:44 11/08/16 11:22 Nitroglycerin (Ntg) 0.4 mg Q5M PRN SL Prn Chest Pain 11/06/16 17:45 12/06/16 17:44 Ondansetron HCl (Zofran) 4 mg Q6H PRN IVP Nausea & Vomiting 11/06/16 17:45 12/06/16 17:44 Pantoprazole (Protonix) 40 mg EVERY 12 HOURS ORAL 11/07/16 11:00 12/07/16 10:59 11/08/16 09:02 Phosphorus (Phospha 250 Neutral) 250 mg THREE TIMES A DAY ORAL 11/08/16 13:00 12/08/16 12:59 11/08/16 13:41 Polyethylene Glycol (Miralax) 17 gm DAILYPRN PRN ORAL Constipation 11/06/16 17:45 12/06/16 17:44 Potassium Phosphate/Sodium Chloride (Potassium Phosphate/Sodium Chloride) 285 ml @ 47.5 mls/hr ONCE ONCE IV 11/08/16 11:00 11/08/16 16:59 Promethazine HCl/ Codeine (Phenergan with Codeine) 5 ml Q6H PRN ORAL For Cough 11/06/16 23:00 12/06/16 22:59 11/07/16 01:42 Sitagliptin Phosphate (Januvia) 50 mg DAILY ORAL 11/07/16 09:00 12/07/16 08:59 11/08/16 09:02 Temazepam (Restoril) 15 mg HSPRN PRN ORAL Insomnia 11/06/16 17:45 11/13/16 17:44 11/06/16 22:54 Vancomycin HCl (Vanco rx to dose) 1 ea DAILY PRN MISC . 11/06/16 20:03 12/06/16 20:02 Vancomycin HCl 1.25 gm/Dextrose 275 ml @ 183.708 mls/hr Q12H IVPB 11/08/16 02:30 11/13/16 02:29 11/08/16 02:18 SUSAN XIAO Nov 08, 2016 15:45
[2016-11-08] MEDS: Promethazine/Codeine 5ml UD ORAL PRN (17:51)
[2016-11-09] MEDS: Vancomycin 1250mg in D5W 275ml IVPB SCH ×2 (02:19→15:32)
[2016-11-09] MEDS: Morphine Sulfate 2mg/ml Inj IVP PRN (02:20)
[2016-11-09 04:00] VITALS: BP 123/53
[2016-11-09] MEDS: NovoLOG Insulin Flexpen SUBQ SCH ×4 (05:59→20:58)
[2016-11-09 06:29] LABS: EOSINOPHILS % (AUTO) 0.3 % (0.0-3.0); LYMPHOCYTES % (AUTO) 9.1 % (20.0-45.0); MEAN CORPUSCULAR HEMOGLOBIN 30.9 PG (27.0-31.0); MEAN CORPUSCULAR HGB CONC 35.1 G/DL (32.0-36.0); MEAN CORPUSCULAR VOLUME 88 FL (80-99); MONOCYTES % (AUTO) 15.7 % (1.0-10.0); NEUTROPHILS % (AUTO) 73.9 % (45.0-75.0); PLATELET COUNT 235 K/UL (150-450); RED BLOOD COUNT 3.95 M/UL (4.70-6.10); RED CELL DISTRIBUTION WIDTH 11.8 % (11.6-14.8); WHITE BLOOD COUNT 15.8 K/UL (4.8-10.8)
[2016-11-09 06:56] LABS: ALANINE AMINOTRANSFERASE 20 U/L (3-41); ALBUMIN/GLOBULIN RATIO 0.8 (1.0-2.7); ANION GAP 17 (5-15); ASPARTATE AMINO TRANSFERASE 20 U/L (5-40); CALCIUM 8.2 mg/dL (8.6-10.2); CARBON DIOXIDE 22 mEQ/L (20-30); CHLORIDE 89 mEQ/L (98-107); CREATININE 1.1 mg/dL (0.7-1.2); CRP QUANT 27.5 mg/dL (< 0.5); GLOMERULAR FILTRATION RATE > 60 mL/min (>60); HEMOLYSIS 0; MAGNESIUM 2.1 mg/dL (1.7-2.5); PHOSPHORUS 1.3 mg/dL (2.5-4.8); POTASSIUM 4.4 mEQ/L (3.4-4.9); SODIUM 128 mEQ/L (135-145); TOTAL PROTEIN 6.5 g/dL (6.6-8.7); URIC ACID 3.8 mg/dL (3.0-7.5)
[2016-11-09 08:46] VITALS: BP 115/57
[2016-11-09] MEDS: sitaGLIPtin 50mg tab ORAL SCH (09:02)
[2016-11-09] MEDS: Phospha 250 Neutral tab ORAL SCH ×4 (09:02→20:50)
[2016-11-09] MEDS: Heparin 5000 units/ml inj SUBQ SCH ×2 (09:08→20:54)
--- NOTE | 2016-11-09 09:56 | Infectious Diseases Prog Note ---
Assessment/Plan Assessment/Plan A: This a 56-year-old male Sepsis, SP Upper back Abscess : carbuncle in the upper back Wnd Cx : Staph A SP I&D of abscess Fever, SP Leukocytosis improving HTN Obesity DM P: cont pt on IV Vanco d# 3 /14 Monitor CBC Monitor BMP Monitor Cultures ( Wnd, Blood ) Subjective Allergies: Coded Allergies: No Known Allergies (Verified Allergy, Mild, 01/23/07) Subjective SP I&D of upper back abscess Objective Vital Signs Last 24 Hour Vital Signs Date Time Temp Pulse Resp B/P Pulse Ox O2 Delivery O2 Flow Rate FiO2 11/09/16 08:46 102.0 105 20 115/57 95 Room Air 11/09/16 04:00 98.8 109 20 123/53 94 Room Air 11/09/16 02:50 98.0 11/08/16 23:52 98.0 74 20 118/79 95 Room Air 11/08/16 20:00 97.6 88 20 110/70 96 Room Air 11/08/16 16:06 97.5 90 20 110/69 99 Room Air 11/08/16 12:00 97.3 90 20 108/69 99 Room Air Height (Feet): 5 Height (Inches): 9.00 Weight (Pounds): 210 HEENT: mucous membranes moist Respiratory/Chest: normal breath sounds Cardiovascular: regularly irregular Abdomen: no organomegaly Microbiology Date/Time Source Procedure Growth Status 11/06/16 12:30 Blood Blood Culture - Preliminary NO GROWTH AFTER 48 HOURS Resulted 11/06/16 12:30 Blood Blood Culture - Preliminary NO GROWTH AFTER 48 HOURS Resulted 11/07/16 15:30 Wound Gram Stain - Final Resulted 11/07/16 15:30 Wound Culture - Preliminary Staphylococcus Aureus Resulted 11/06/16 16:39 Nasal Nares MRSA Culture - Final NO METHICILLIN RESISTANT STAPH AUREUS... Complete 11/08/16 12:24 Neck Gram Stain Pending Resulted 11/08/16 12:24 Neck Wound Culture - Preliminary NO GROWTH Resulted Laboratory Tests Test 11/09/16 05:45 White Blood Count 15.8 K/UL (4.8-10.8) H Red Blood Count 3.95 M/UL (4.70-6.10) L Hemoglobin 12.2 G/DL (14.2-18.0) L Hematocrit 34.8 % (42.0-52.0) L Mean Corpuscular Volume 88 FL (80-99) Mean Corpuscular Hemoglobin 30.9 PG (27.0-31.0) Mean Corpuscular Hemoglobin Concent 35.1 G/DL (32.0-36.0) Red Cell Distribution Width 11.8 % (11.6-14.8) Platelet Count 235 K/UL (150-450) Mean Platelet Volume 7.0 FL (6.5-10.1) Neutrophils (%) (Auto) 73.9 % (45.0-75.0) Lymphocytes (%) (Auto) 9.1 % (20.0-45.0) L Monocytes (%) (Auto) 15.7 % (1.0-10.0) H Eosinophils (%) (Auto) 0.3 % (0.0-3.0) Basophils (%) (Auto) 1.0 % (0.0-2.0) Sodium Level 128 mEQ/L (135-145) L Potassium Level 4.4 mEQ/L (3.4-4.9) Chloride Level 89 mEQ/L (98-107) L Carbon Dioxide Level 22 mEQ/L (20-30) Anion Gap 17 (5-15) H Blood Urea Nitrogen 10 mg/dL (7-23) Creatinine 1.1 mg/dL (0.7-1.2) Estimat Glomerular Filtration Rate > 60 mL/min (>60) Glucose Level 234 mg/dL (74-106) H Uric Acid 3.8 mg/dL (3.0-7.5) Calcium Level 8.2 mg/dL (8.6-10.2) L Phosphorus Level 1.3 mg/dL (2.5-4.8) L Magnesium Level 2.1 mg/dL (1.7-2.5) Total Bilirubin 0.7 mg/dL (0.0-1.2) Aspartate Amino Transf (AST/SGOT) 20 U/L (5-40) Alanine Aminotransferase (ALT/SGPT) 20 U/L (3-41) Alkaline Phosphatase 70 U/L (40-129) C-Reactive Protein, Quantitative 27.5 mg/dL (< 0.5) H Pro-B-Type Natriuretic Peptide 1845 pg/mL (0-125) H Total Protein 6.5 g/dL (6.6-8.7) L Albumin 3.0 g/dL (3.5-5.2) L Globulin 3.5 g/dL Albumin/Globulin Ratio 0.8 (1.0-2.7) L Current Medications Medications (Trade) Dose Ordered Sig/Sarah Route PRN Reason Start Time Stop Time Status Last Admin Dose Admin Acetaminophen 650 mg 650 mg Q6H PRN ORAL fever 11/07/16 18:00 12/07/16 17:59 11/07/16 20:28 Albuterol/ Ipratropium (DuoNeb 0.5-3(2.5)mg/3ml) 3 ml EVERY 4 HOURS PRN HHN Shortness of Breath 11/06/16 17:45 11/11/16 17:44 Dextrose (Dextrose 50%) STAT PRN IV Hypoglycemia 11/06/16 17:45 12/06/16 17:44 Furosemide (Lasix) 10 mg EVERY 6 HOURS IV 11/09/16 12:00 12/09/16 11:59 UNV Gabapentin (Neurontin) 600 mg Q8HR ORAL 11/06/16 22:00 12/06/16 21:59 11/09/16 05:55 Heparin Sodium (Porcine) (Heparin 5000 units/ml) 5,000 units EVERY 12 HOURS SUBQ 11/06/16 21:00 12/06/16 20:59 11/09/16 09:08 Insulin Aspart (NovoLOG) BEFORE MEALS AND HS SUBQ 11/06/16 21:00 12/06/16 20:59 11/09/16 05:59 Morphine Sulfate (Morphine Sulfate) 2 mg EVERY 4 HOURS PRN IVP Moderate Pain (Pain Scale 4-6) 11/06/16 17:45 11/13/16 17:44 11/09/16 02:20 Nitroglycerin (Ntg) 0.4 mg Q5M PRN SL Prn Chest Pain 11/06/16 17:45 12/06/16 17:44 Ondansetron HCl (Zofran) 4 mg Q6H PRN IVP Nausea & Vomiting 11/06/16 17:45 12/06/16 17:44 Pantoprazole (Protonix) 40 mg EVERY 12 HOURS ORAL 11/07/16 11:00 12/07/16 10:59 11/09/16 09:02 Phosphorus 500 mg 500 mg THREE TIMES A DAY ORAL 11/09/16 13:00 12/09/16 12:59 UNV Polyethylene Glycol (Miralax) 17 gm DAILYPRN PRN ORAL Constipation 11/06/16 17:45 12/06/16 17:44 Promethazine HCl/ Codeine (Phenergan with Codeine) 5 ml Q6H PRN ORAL For Cough 11/06/16 23:00 12/06/16 22:59 11/08/16 17:51 Sitagliptin Phosphate (Januvia) 50 mg DAILY ORAL 11/07/16 09:00 12/07/16 08:59 11/09/16 09:02 Sodium Chloride (Hypertonic Saline) 500 ml @ 30 mls/hr ONCE ONCE IVPB 11/09/16 09:45 11/10/16 02:24 UNV Sodium Phosphate/ Sodium Chloride (NaPO4/Sodium Chloride) 285 ml @ 47.5 mls/hr ONCE ONCE IVPB 11/09/16 11:00 11/09/16 16:59 Temazepam (Restoril) 15 mg HSPRN PRN ORAL Insomnia 11/06/16 17:45 11/13/16 17:44 11/08/16 21:52 Vancomycin HCl (Vanco rx to dose) 1 ea DAILY PRN MISC . 11/06/16 20:03 12/06/16 20:02 Vancomycin HCl 1.25 gm/Dextrose 275 ml @ 183.708 mls/hr Q12H IVPB 11/08/16 02:30 11/13/16 02:29 11/09/16 02:19 JESSICA DANIELS M.D. Nov 09, 2016 09:56
[2016-11-09] MEDS ORDERED: Sodium Phosphate 30 MM in NS 275 ML IVPB ONE (11:00)
[2016-11-09] MEDS ORDERED: NaCl 3% 500ml 500 ML IV ONE (11:00)
[2016-11-09 11:49] VITALS: BP 90/61
[2016-11-09] MEDS ORDERED: Tubing IV Secondary IV ONE (15:07)
[2016-11-09 16:06] VITALS: BP 106/70
[2016-11-09] MEDS: Promethazine/Codeine 5ml UD ORAL PRN (18:41)
--- NOTE | 2016-11-09 19:34 | Pulmonology Progress Note ---
Assessment/Plan Problems: (1) Cellulitis (2) Abscess (3) Diabetes Assessment/Plan Iv antibiotics check cultures f/u electroltyes Subjective ROS Limited/Unobtainable: No Allergies: Coded Allergies: No Known Allergies (Verified Allergy, Mild, 01/23/07) Objective Last 24 Hour Vital Signs Date Time Temp Pulse Resp B/P Pulse Ox O2 Delivery O2 Flow Rate FiO2 11/09/16 16:06 97.8 87 15 106/70 98 11/09/16 11:49 98.2 83 15 90/61 99 Room Air 11/09/16 10:06 98.6 11/09/16 08:46 102.0 105 20 115/57 95 Room Air 11/09/16 04:00 98.8 109 20 123/53 94 Room Air 11/09/16 02:50 98.0 11/08/16 23:52 98.0 74 20 118/79 95 Room Air 11/08/16 20:00 97.6 88 20 110/70 96 Room Air Intake and Output 11/08/16 11/09/16 19:00 07:00 Intake Total 480 ml 275.000 ml Balance 480 ml 275.000 ml Intake Oral 480 ml IV Total 275.000 ml # Voids 5 2 General Appearance: WD/WN HEENT: normocephalic Respiratory/Chest: chest wall non-tender, lungs clear Cardiovascular: normal rate, no gallop/murmur Abdomen: normal bowel sounds, soft, non tender Extremities: no cyanosis Microbiology Date/Time Source Procedure Growth Status 11/07/16 15:30 Wound Gram Stain - Final Resulted 11/07/16 15:30 Wound Culture - Preliminary Staphylococcus Aureus Resulted 11/08/16 12:24 Neck Gram Stain - Final Resulted 11/08/16 12:24 Neck Wound Culture - Preliminary NO GROWTH Resulted Laboratory Tests 11/09/16 05:45: White Blood Count 15.8H, Red Blood Count 3.95L, Hemoglobin 12.2L, Hematocrit 34.8L, Mean Corpuscular Volume 88, Mean Corpuscular Hemoglobin 30.9, Mean Corpuscular Hemoglobin Concent 35.1, Red Cell Distribution Width 11.8, Platelet Count 235, Mean Platelet Volume 7.0, Neutrophils (%) (Auto) 73.9, Lymphocytes (% ) (Auto) 9.1L, Monocytes (%) (Auto) 15.7H, Eosinophils (%) (Auto) 0.3, Basophils (%) (Auto) 1.0, Sodium Level 128L, Potassium Level 4.4, Chloride Level 89L, Carbon Dioxide Level 22, Anion Gap 17H, Blood Urea Nitrogen 10, Creatinine 1.1, Estimat Glomerular Filtration Rate > 60, Glucose Level 234H, Uric Acid 3.8, Calcium Level 8.2L, Phosphorus Level 1.3L, Magnesium Level 2.1, Total Bilirubin 0.7, Aspartate Amino Transf (AST/SGOT) 20, Alanine Aminotransferase (ALT/SGPT) 20, Alkaline Phosphatase 70, C-Reactive Protein, Quantitative 27.5H, Pro-B-Type Natriuretic Peptide 1845H, Total Protein 6.5L, Albumin 3.0L, Globulin 3.5, Albumin/Globulin Ratio 0.8L 11/09/16 14:20: Vancomycin Level Trough 9.0 Current Medications Medications (Trade) Dose Ordered Sig/Sarah Route PRN Reason Start Time Stop Time Status Last Admin Dose Admin Acetaminophen 650 mg 650 mg Q6H PRN ORAL fever 11/07/16 18:00 12/07/16 17:59 11/07/16 20:28 Albuterol/ Ipratropium (DuoNeb 0.5-3(2.5)mg/3ml) 3 ml EVERY 4 HOURS PRN HHN Shortness of Breath 11/06/16 17:45 11/11/16 17:44 Dextrose (Dextrose 50%) STAT PRN IV Hypoglycemia 11/06/16 17:45 12/06/16 17:44 Furosemide (Lasix) 10 mg EVERY 6 HOURS IV 11/09/16 12:00 12/09/16 11:59 11/09/16 18:21 Gabapentin (Neurontin) 600 mg Q8HR ORAL 11/06/16 22:00 12/06/16 21:59 11/09/16 14:32 Heparin Sodium (Porcine) (Heparin 5000 units/ml) 5,000 units EVERY 12 HOURS SUBQ 11/06/16 21:00 12/06/16 20:59 11/09/16 09:08 Insulin Aspart (NovoLOG) BEFORE MEALS AND HS SUBQ 11/06/16 21:00 12/06/16 20:59 11/09/16 17:23 Morphine Sulfate (Morphine Sulfate) 2 mg EVERY 4 HOURS PRN IVP Moderate Pain (Pain Scale 4-6) 11/06/16 17:45 11/13/16 17:44 11/09/16 02:20 Nitroglycerin (Ntg) 0.4 mg Q5M PRN SL Prn Chest Pain 11/06/16 17:45 12/06/16 17:44 Ondansetron HCl (Zofran) 4 mg Q6H PRN IVP Nausea & Vomiting 11/06/16 17:45 12/06/16 17:44 Pantoprazole (Protonix) 40 mg EVERY 12 HOURS ORAL 11/07/16 11:00 12/07/16 10:59 11/09/16 09:02 Phosphorus 500 mg 500 mg THREE TIMES A DAY ORAL 11/09/16 11:00 12/09/16 10:59 11/09/16 14:32 Polyethylene Glycol (Miralax) 17 gm DAILYPRN PRN ORAL Constipation 11/06/16 17:45 12/06/16 17:44 Promethazine HCl/ Codeine (Phenergan with Codeine) 5 ml Q6H PRN ORAL For Cough 11/06/16 23:00 12/06/16 22:59 11/09/16 18:41 Sitagliptin Phosphate (Januvia) 50 mg DAILY ORAL 11/07/16 09:00 12/07/16 08:59 11/09/16 09:02 Sodium Chloride (Hypertonic Saline) 500 ml @ 30 mls/hr ONCE ONCE IV 11/09/16 11:00 11/10/16 03:39 11/09/16 17:23 Temazepam (Restoril) 15 mg HSPRN PRN ORAL Insomnia 11/06/16 17:45 11/13/16 17:44 11/08/16 21:52 Vancomycin HCl (Vanco rx to dose) 1 ea DAILY PRN MISC . 11/06/16 20:03 12/06/16 20:02 Vancomycin HCl/ Dextrose (Vancomycin/D5W) 275 ml @ 183.708 mls/hr Q12H IVPB 11/08/16 02:30 11/13/16 02:29 11/09/16 15:32 SUSAN XIAO Nov 09, 2016 19:34
[2016-11-09 20:00] VITALS: BP 122/69
[2016-11-10] VITALS (7 sets, daily range): BP systolic 118–137; BP diastolic 54–77
[2016-11-10] MEDS: Promethazine/Codeine 5ml UD ORAL PRN ×2 (00:47→19:46)
[2016-11-10] MEDS: Vancomycin 1250mg in D5W 275ml IVPB SCH ×2 (02:31→15:26)
[2016-11-10] MEDS: Morphine Sulfate 2mg/ml Inj IVP PRN (04:57)
[2016-11-10] MEDS: NovoLOG Insulin Flexpen SUBQ SCH ×4 (06:07→21:45)
--- NOTE | 2016-11-10 07:01 | General Surgery Progress Note ---
General Surgery-Progress Note Subjective Procedure Performed incision and drainage of upper midline back abscess. Symptoms: improved Additional Comments Patient seen and examined at bedside. No acute events. Doing well. Still wih some pain in the upper midline back but improving. States that edema in upper extremities and shoulders have improved. low grade fever 100.0 yesterday. Objective Last 24 Hour Vital Signs Date Time Temp Pulse Resp B/P Pulse Ox O2 Delivery O2 Flow Rate FiO2 11/10/16 05:27 98.6 11/10/16 04:00 98.9 91 18 137/75 99 Room Air 11/10/16 00:00 98.6 89 18 134/71 96 Room Air 11/09/16 20:00 100.0 94 17 122/69 98 Room Air 11/09/16 16:06 97.8 87 15 106/70 98 11/09/16 11:49 98.2 83 15 90/61 99 Room Air 11/09/16 10:06 98.6 11/09/16 08:46 102.0 105 20 115/57 95 Room Air I&O Intake and Output 11/09/16 11/10/16 19:00 07:00 Intake Total 2030 ml 1360.000 ml Balance 2030 ml 1360.000 ml Intake Oral 2000 ml 800 ml IV Total 30 ml 560.000 ml # Voids 3 2 Dressing: saturated Wound: clean, other - upper midline back cellulitis midly improved but still present, edema improved, tender around area of cellulitis, s/p I&D site clean with minimal discharge. Drains: none Cardiovascular: RSR Respiratory: clear Abdomen: soft, non-tender, present bowel sounds Extremities: edema, no edema, no tenderness, pulses Laboratory Tests Test 11/09/16 14:20 Vancomycin Level Trough 9.0 ug/mL (5.0-12.0) Plan Problems: (1) Abscess Assessment & Plan: 56M upper midline back cellulitis/phlegmon s/p I&D. low grade fever 100.0, leukocytosis trending down, exam as noted above. Cellulitis slowly improving. Diabetes poorly controlled prior with A1c >9. May have difficulty healing wounds. Will continue to monitor clinically. I explained to the patient that currently he does not have an abscess but does have area of phlegmon that has potential to heal but may require further debridement. Given area of upper midline back, wound would be difficult to close primarily after debridement and may require extensive wound care. Continue IV Abx wound care with dressings will continue to monitor If wound does not improve over the next 2-3 days, will require further debridement. Roderick Tolentino Nov 10, 2016 07:01
[2016-11-10 07:16] LABS: BASOPHILS % (AUTO) 0.9 % (0.0-2.0); EOSINOPHILS % (AUTO) 2.1 % (0.0-3.0); LYMPHOCYTES % (AUTO) 12.6 % (20.0-45.0); MEAN CORPUSCULAR HEMOGLOBIN 30.1 PG (27.0-31.0); MEAN CORPUSCULAR HGB CONC 34.3 G/DL (32.0-36.0); MEAN CORPUSCULAR VOLUME 88 FL (80-99); MONOCYTES % (AUTO) 12.2 % (1.0-10.0); NEUTROPHILS % (AUTO) 72.2 % (45.0-75.0); PLATELET COUNT 254 K/UL (150-450); RED BLOOD COUNT 3.79 M/UL (4.70-6.10); RED CELL DISTRIBUTION WIDTH 11.7 % (11.6-14.8); WHITE BLOOD COUNT 10.2 K/UL (4.8-10.8)
[2016-11-10 07:30] LABS: ALANINE AMINOTRANSFERASE 40 U/L (3-41); ALBUMIN/GLOBULIN RATIO 0.8 (1.0-2.7); ANION GAP 14 (5-15); ASPARTATE AMINO TRANSFERASE 53 U/L (5-40); CALCIUM 7.9 mg/dL (8.6-10.2); CARBON DIOXIDE 23 mEQ/L (20-30); CHLORIDE 90 mEQ/L (98-107); CREATININE 1.1 mg/dL (0.7-1.2); CRP QUANT 23.7 mg/dL (< 0.5); GLOMERULAR FILTRATION RATE > 60 mL/min (>60); HEMOLYSIS 3; MAGNESIUM 1.9 mg/dL (1.7-2.5); PHOSPHORUS 2.1 mg/dL (2.5-4.8); POTASSIUM 3.4 mEQ/L (3.4-4.9); SODIUM 127 mEQ/L (135-145); TOTAL PROTEIN 6.3 g/dL (6.6-8.7); URIC ACID 4.7 mg/dL (3.0-7.5)
[2016-11-10] MEDS: Phospha 250 Neutral tab ORAL SCH ×3 (08:49→17:30)
[2016-11-10] MEDS: sitaGLIPtin 50mg tab ORAL SCH (08:49)
[2016-11-10] MEDS: Heparin 5000 units/ml inj SUBQ SCH ×2 (08:50→21:45)
--- NOTE | 2016-11-10 09:52 | General Progress Note ---
Assessment/Plan Status: unchanged Status Narrative Na 127- BS high- Low Phos and k Assessment/Plan status: HypoNatremia: ? Depletional, Partly related to high sugar DM HTN Abscess : carbuncle in the upper back Wnd Cx : GPC Plan: Check TSH and U os NS infusion Monitor lytes and renal parameters- Keep BP and BS in check mag and Phos supplement per orders discussed with RN Subjective ROS Limited/Unobtainable: No Constitutional: Reports: malaise, weakness Allergies: Coded Allergies: No Known Allergies (Verified Allergy, Mild, 01/23/07) Objective Last 24 Hour Vital Signs Date Time Temp Pulse Resp B/P Pulse Ox O2 Delivery O2 Flow Rate FiO2 11/10/16 08:00 99.7 102 20 124/71 100 Room Air 11/10/16 05:27 98.6 11/10/16 04:00 98.9 91 18 137/75 99 Room Air 11/10/16 00:00 98.6 89 18 134/71 96 Room Air 11/09/16 20:00 100.0 94 17 122/69 98 Room Air 11/09/16 16:06 97.8 87 15 106/70 98 11/09/16 11:49 98.2 83 15 90/61 99 Room Air 11/09/16 10:06 98.6 Intake and Output 11/09/16 11/10/16 19:00 07:00 Intake Total 2030 ml 1360.000 ml Balance 2030 ml 1360.000 ml Intake Oral 2000 ml 800 ml IV Total 30 ml 560.000 ml # Voids 3 2 Laboratory Tests 11/09/16 14:20: Vancomycin Level Trough 9.0 11/10/16 05:10: White Blood Count 10.2, Red Blood Count 3.79L, Hemoglobin 11.4L, Hematocrit 33.4L, Mean Corpuscular Volume 88, Mean Corpuscular Hemoglobin 30.1, Mean Corpuscular Hemoglobin Concent 34.3, Red Cell Distribution Width 11.7, Platelet Count 254, Mean Platelet Volume 7.0, Neutrophils (%) (Auto) 72.2, Lymphocytes (% ) (Auto) 12.6L, Monocytes (%) (Auto) 12.2H, Eosinophils (%) (Auto) 2.1, Basophils (%) (Auto) 0.9, Sodium Level 127L, Potassium Level 3.4, Chloride Level 90L, Carbon Dioxide Level 23, Anion Gap 14, Blood Urea Nitrogen 14, Creatinine 1.1, Estimat Glomerular Filtration Rate > 60, Glucose Level 217H, Uric Acid 4.7, Calcium Level 7.9L, Phosphorus Level 2.1L, Magnesium Level 1.9, Total Bilirubin 0.7, Aspartate Amino Transf (AST/SGOT) 53H, Alanine Aminotransferase (ALT/SGPT) 40, Alkaline Phosphatase 106, C-Reactive Protein, Quantitative 23.7H, Pro-B-Type Natriuretic Peptide 908H, Total Protein 6.3L, Albumin 2.9L, Globulin 3.4, Albumin/Globulin Ratio 0.8L Height (Feet): 5 Height (Inches): 9.00 Weight (Pounds): 210 General Appearance: no apparent distress Cardiovascular: tachycardia Respiratory/Chest: decreased breath sounds Abdomen: soft Objective other PE not changed LEXIS GEE Nov 10, 2016 09:52
[2016-11-10] MEDS ORDERED: Potassium Phosphate 30 MM in NS 275 ML IV ONE (10:00)
[2016-11-10] MEDS ORDERED: NaCl 3% 500ml 500 ML IV ONE (10:00)
[2016-11-10] MEDS: Repaglinide 1mg tab ORAL SCH ×2 (11:37→16:24)
--- NOTE | 2016-11-10 19:24 | Pulmonology Progress Note ---
Assessment/Plan Problems: (1) Cellulitis (2) Abscess (3) Diabetes Assessment/Plan Iv antibiotics check cultures f/u electrolytes wound care repeat cultures Subjective ROS Limited/Unobtainable: No Allergies: Coded Allergies: No Known Allergies (Verified Allergy, Mild, 01/23/07) Objective Last 24 Hour Vital Signs Date Time Temp Pulse Resp B/P Pulse Ox O2 Delivery O2 Flow Rate FiO2 11/10/16 16:00 97.7 80 20 119/77 95 Room Air 11/10/16 12:40 98.2 11/10/16 11:54 101.7 89 18 121/64 97 Room Air 11/10/16 08:00 99.7 102 20 124/71 100 Room Air 11/10/16 05:27 98.6 11/10/16 04:00 98.9 91 18 137/75 99 Room Air 11/10/16 00:00 98.6 89 18 134/71 96 Room Air 11/09/16 20:00 100.0 94 17 122/69 98 Room Air Intake and Output 11/09/16 11/10/16 19:00 07:00 Intake Total 2030 ml 1360.000 ml Balance 2030 ml 1360.000 ml Intake Oral 2000 ml 800 ml IV Total 30 ml 560.000 ml # Voids 3 2 General Appearance: WD/WN HEENT: normocephalic Respiratory/Chest: chest wall non-tender Cardiovascular: normal peripheral pulses Abdomen: normal bowel sounds Extremities: no cyanosis Skin: other - clear dressing in neck area Microbiology Date/Time Source Procedure Growth Status 11/08/16 12:24 Neck Gram Stain - Final Resulted 11/08/16 12:24 Wound Culture - Preliminary Staphylococcus Aureus Resulted Laboratory Tests 11/10/16 05:10: White Blood Count 10.2, Red Blood Count 3.79L, Hemoglobin 11.4L, Hematocrit 33.4L, Mean Corpuscular Volume 88, Mean Corpuscular Hemoglobin 30.1, Mean Corpuscular Hemoglobin Concent 34.3, Red Cell Distribution Width 11.7, Platelet Count 254, Mean Platelet Volume 7.0, Neutrophils (%) (Auto) 72.2, Lymphocytes (% ) (Auto) 12.6L, Monocytes (%) (Auto) 12.2H, Eosinophils (%) (Auto) 2.1, Basophils (%) (Auto) 0.9, Sodium Level 127L, Potassium Level 3.4, Chloride Level 90L, Carbon Dioxide Level 23, Anion Gap 14, Blood Urea Nitrogen 14, Creatinine 1.1, Estimat Glomerular Filtration Rate > 60, Glucose Level 217H, Uric Acid 4.7, Calcium Level 7.9L, Phosphorus Level 2.1L, Magnesium Level 1.9, Total Bilirubin 0.7, Aspartate Amino Transf (AST/SGOT) 53H, Alanine Aminotransferase (ALT/SGPT) 40, Alkaline Phosphatase 106, C-Reactive Protein, Quantitative 23.7H, Pro-B-Type Natriuretic Peptide 908H, Total Protein 6.3L, Albumin 2.9L, Globulin 3.4, Albumin/Globulin Ratio 0.8L Current Medications Medications (Trade) Dose Ordered Sig/Sarah Route PRN Reason Start Time Stop Time Status Last Admin Dose Admin Acetaminophen 650 mg 650 mg Q6H PRN ORAL fever 11/07/16 18:00 12/07/16 17:59 11/10/16 11:37 Albuterol/ Ipratropium (DuoNeb 0.5-3(2.5)mg/3ml) 3 ml EVERY 4 HOURS PRN HHN Shortness of Breath 11/06/16 17:45 11/11/16 17:44 Dextrose (Dextrose 50%) STAT PRN IV Hypoglycemia 11/06/16 17:45 12/06/16 17:44 Furosemide 10 mg 10 mg EVERY 6 HOURS IV 11/09/16 12:00 12/09/16 11:59 11/10/16 17:30 Gabapentin (Neurontin) 600 mg Q8HR ORAL 11/06/16 22:00 12/06/16 21:59 11/10/16 13:25 Heparin Sodium (Porcine) (Heparin 5000 units/ml) 5,000 units EVERY 12 HOURS SUBQ 11/06/16 21:00 12/06/16 20:59 11/10/16 08:50 Insulin Aspart (NovoLOG) BEFORE MEALS AND HS SUBQ 11/06/16 21:00 12/06/16 20:59 11/10/16 17:30 Morphine Sulfate (Morphine Sulfate) 2 mg EVERY 4 HOURS PRN IVP Moderate Pain (Pain Scale 4-6) 11/06/16 17:45 11/13/16 17:44 11/10/16 04:57 Nitroglycerin (Ntg) 0.4 mg Q5M PRN SL Prn Chest Pain 11/06/16 17:45 12/06/16 17:44 Ondansetron HCl (Zofran) 4 mg Q6H PRN IVP Nausea & Vomiting 11/06/16 17:45 12/06/16 17:44 Pantoprazole (Protonix) 40 mg EVERY 12 HOURS ORAL 11/07/16 11:00 12/07/16 10:59 11/10/16 08:49 Phosphorus (Phospha 250 Neutral) 500 mg THREE TIMES A DAY ORAL 11/09/16 11:00 12/09/16 10:59 11/10/16 17:30 Polyethylene Glycol (Miralax) 17 gm DAILYPRN PRN ORAL Constipation 11/06/16 17:45 12/06/16 17:44 Promethazine HCl/ Codeine (Phenergan with Codeine) 5 ml Q6H PRN ORAL For Cough 11/06/16 23:00 12/06/16 22:59 11/10/16 00:47 Repaglinide (Prandin) 1 mg TIAC ORAL 11/10/16 11:30 12/10/16 11:29 11/10/16 16:24 Sitagliptin Phosphate (Januvia) 50 mg DAILY ORAL 11/07/16 09:00 12/07/16 08:59 11/10/16 08:49 Sodium Chloride (Hypertonic Saline) 500 ml @ 30 mls/hr ONCE ONCE IV 11/10/16 10:00 11/11/16 02:39 11/10/16 13:25 Temazepam (Restoril) 15 mg HSPRN PRN ORAL Insomnia 11/06/16 17:45 11/13/16 17:44 11/10/16 00:46 Vancomycin HCl (Vanco rx to dose) 1 ea DAILY PRN MISC . 11/06/16 20:03 12/06/16 20:02 Vancomycin HCl/ Dextrose (Vancomycin/D5W) 275 ml @ 183.708 mls/hr Q12H IVPB 11/08/16 02:30 11/13/16 02:29 11/10/16 15:26 SUSAN XIAO Nov 10, 2016 19:24
--- NOTE | 2016-11-10 21:23 | Infectious Diseases Prog Note ---
Assessment/Plan Assessment/Plan A: This a 56-year-old male Sepsis, SP Upper back Abscess : carbuncle in the upper back Wnd Cx : Staph A SP I&D of abscess Fever, SP Leukocytosis improving HTN Obesity DM P: cont pt on IV Vanco d# 4 /14 , upon DC will change to Bactrim Monitor CBC Monitor BMP Monitor Cultures ( Wnd, Blood ) Subjective Allergies: Coded Allergies: No Known Allergies (Verified Allergy, Mild, 01/23/07) Subjective fever Objective Vital Signs Last 24 Hour Vital Signs Date Time Temp Pulse Resp B/P Pulse Ox O2 Delivery O2 Flow Rate FiO2 11/10/16 20:00 99.7 92 18 127/72 94 Room Air 11/10/16 16:00 97.7 80 20 119/77 95 Room Air 11/10/16 12:40 98.2 11/10/16 11:54 101.7 89 18 121/64 97 Room Air 11/10/16 08:00 99.7 102 20 124/71 100 Room Air 11/10/16 05:27 98.6 11/10/16 04:00 98.9 91 18 137/75 99 Room Air 11/10/16 00:00 98.6 89 18 134/71 96 Room Air Height (Feet): 5 Height (Inches): 9.00 Weight (Pounds): 210 HEENT: atraumatic Respiratory/Chest: no respiratory distress Cardiovascular: regular rhythm Abdomen: no organomegaly Microbiology Date/Time Source Procedure Growth Status 11/08/16 12:24 Neck Gram Stain - Final Resulted 11/08/16 12:24 Wound Culture - Preliminary Staphylococcus Aureus Resulted Laboratory Tests Test 11/10/16 05:10 White Blood Count 10.2 K/UL (4.8-10.8) Red Blood Count 3.79 M/UL (4.70-6.10) L Hemoglobin 11.4 G/DL (14.2-18.0) L Hematocrit 33.4 % (42.0-52.0) L Mean Corpuscular Volume 88 FL (80-99) Mean Corpuscular Hemoglobin 30.1 PG (27.0-31.0) Mean Corpuscular Hemoglobin Concent 34.3 G/DL (32.0-36.0) Red Cell Distribution Width 11.7 % (11.6-14.8) Platelet Count 254 K/UL (150-450) Mean Platelet Volume 7.0 FL (6.5-10.1) Neutrophils (%) (Auto) 72.2 % (45.0-75.0) Lymphocytes (%) (Auto) 12.6 % (20.0-45.0) L Monocytes (%) (Auto) 12.2 % (1.0-10.0) H Eosinophils (%) (Auto) 2.1 % (0.0-3.0) Basophils (%) (Auto) 0.9 % (0.0-2.0) Sodium Level 127 mEQ/L (135-145) L Potassium Level 3.4 mEQ/L (3.4-4.9) Chloride Level 90 mEQ/L (98-107) L Carbon Dioxide Level 23 mEQ/L (20-30) Anion Gap 14 (5-15) Blood Urea Nitrogen 14 mg/dL (7-23) Creatinine 1.1 mg/dL (0.7-1.2) Estimat Glomerular Filtration Rate > 60 mL/min (>60) Glucose Level 217 mg/dL (74-106) H Uric Acid 4.7 mg/dL (3.0-7.5) Calcium Level 7.9 mg/dL (8.6-10.2) L Phosphorus Level 2.1 mg/dL (2.5-4.8) L Magnesium Level 1.9 mg/dL (1.7-2.5) Total Bilirubin 0.7 mg/dL (0.0-1.2) Aspartate Amino Transf (AST/SGOT) 53 U/L (5-40) H Alanine Aminotransferase (ALT/SGPT) 40 U/L (3-41) Alkaline Phosphatase 106 U/L (40-129) C-Reactive Protein, Quantitative 23.7 mg/dL (< 0.5) H Pro-B-Type Natriuretic Peptide 908 pg/mL (0-125) H Total Protein 6.3 g/dL (6.6-8.7) L Albumin 2.9 g/dL (3.5-5.2) L Globulin 3.4 g/dL Albumin/Globulin Ratio 0.8 (1.0-2.7) L Current Medications Medications (Trade) Dose Ordered Sig/Sarah Route PRN Reason Start Time Stop Time Status Last Admin Dose Admin Acetaminophen 650 mg 650 mg Q6H PRN ORAL fever 11/07/16 18:00 12/07/16 17:59 11/10/16 11:37 Albuterol/ Ipratropium (DuoNeb 0.5-3(2.5)mg/3ml) 3 ml EVERY 4 HOURS PRN HHN Shortness of Breath 11/06/16 17:45 11/11/16 17:44 Dextrose (Dextrose 50%) STAT PRN IV Hypoglycemia 11/06/16 17:45 12/06/16 17:44 Furosemide 10 mg 10 mg EVERY 6 HOURS IV 11/09/16 12:00 12/09/16 11:59 11/10/16 17:30 Gabapentin (Neurontin) 600 mg Q8HR ORAL 11/06/16 22:00 12/06/16 21:59 11/10/16 13:25 Heparin Sodium (Porcine) (Heparin 5000 units/ml) 5,000 units EVERY 12 HOURS SUBQ 11/06/16 21:00 12/06/16 20:59 11/10/16 08:50 Insulin Aspart (NovoLOG) BEFORE MEALS AND HS SUBQ 11/06/16 21:00 12/06/16 20:59 11/10/16 17:30 Morphine Sulfate (Morphine Sulfate) 2 mg EVERY 4 HOURS PRN IVP Moderate Pain (Pain Scale 4-6) 11/06/16 17:45 11/13/16 17:44 11/10/16 04:57 Nitroglycerin (Ntg) 0.4 mg Q5M PRN SL Prn Chest Pain 11/06/16 17:45 12/06/16 17:44 Ondansetron HCl (Zofran) 4 mg Q6H PRN IVP Nausea & Vomiting 11/06/16 17:45 12/06/16 17:44 Pantoprazole (Protonix) 40 mg EVERY 12 HOURS ORAL 11/07/16 11:00 12/07/16 10:59 11/10/16 08:49 Phosphorus (Phospha 250 Neutral) 500 mg THREE TIMES A DAY ORAL 11/09/16 11:00 12/09/16 10:59 11/10/16 17:30 Polyethylene Glycol (Miralax) 17 gm DAILYPRN PRN ORAL Constipation 11/06/16 17:45 12/06/16 17:44 Promethazine HCl/ Codeine (Phenergan with Codeine) 5 ml Q6H PRN ORAL For Cough 11/06/16 23:00 12/06/16 22:59 11/10/16 19:46 Repaglinide (Prandin) 1 mg TIAC ORAL 11/10/16 11:30 12/10/16 11:29 11/10/16 16:24 Sitagliptin Phosphate (Januvia) 50 mg DAILY ORAL 11/07/16 09:00 12/07/16 08:59 11/10/16 08:49 Sodium Chloride (Hypertonic Saline) 500 ml @ 30 mls/hr ONCE ONCE IV 11/10/16 10:00 11/11/16 02:39 11/10/16 13:25 Temazepam (Restoril) 15 mg HSPRN PRN ORAL Insomnia 11/06/16 17:45 11/13/16 17:44 11/10/16 00:46 Vancomycin HCl (Vanco rx to dose) 1 ea DAILY PRN MISC . 11/06/16 20:03 12/06/16 20:02 Vancomycin HCl/ Dextrose (Vancomycin/D5W) 275 ml @ 183.708 mls/hr Q12H IVPB 11/08/16 02:30 11/13/16 02:29 11/10/16 15:26 JESSICA DANIELS M.D. Nov 10, 2016 21:23
[2016-11-11] MEDS: Morphine Sulfate 2mg/ml Inj IVP PRN ×2 (01:10→16:54)
[2016-11-11] MEDS: Vancomycin 1250mg in D5W 275ml IVPB SCH ×2 (02:23→15:01)
[2016-11-11 04:00] VITALS: BP 116/51
[2016-11-11] MEDS: Repaglinide 1mg tab ORAL SCH ×3 (06:03→16:54)
[2016-11-11] MEDS: NovoLOG Insulin Flexpen SUBQ SCH ×3 (06:10→16:56)
[2016-11-11 06:30] LABS: BASOPHILS % (AUTO) 2.4 % (0.0-2.0); EOSINOPHILS % (AUTO) 4.2 % (0.0-3.0); LYMPHOCYTES % (AUTO) 17.4 % (20.0-45.0); MEAN CORPUSCULAR HEMOGLOBIN 30.4 PG (27.0-31.0); MEAN CORPUSCULAR HGB CONC 33.9 G/DL (32.0-36.0); MEAN CORPUSCULAR VOLUME 90 FL (80-99); MEAN PLATELET VOLUME 7.1 FL (6.5-10.1); MONOCYTES % (AUTO) 10.2 % (1.0-10.0); NEUTROPHILS % (AUTO) 65.9 % (45.0-75.0); PLATELET COUNT 302 K/UL (150-450); RED BLOOD COUNT 3.68 M/UL (4.70-6.10); WHITE BLOOD COUNT 8.1 K/UL (4.8-10.8)
[2016-11-11 06:53] LABS: ALANINE AMINOTRANSFERASE 61 U/L (3-41); ALBUMIN/GLOBULIN RATIO 0.8 (1.0-2.7); ANION GAP 14 (5-15); ASPARTATE AMINO TRANSFERASE 71 U/L (5-40); CARBON DIOXIDE 28 mEQ/L (20-30); CHLORIDE 93 mEQ/L (98-107); CRP QUANT 13.1 mg/dL (< 0.5); GLOMERULAR FILTRATION RATE > 60 mL/min (>60); HEMOLYSIS 2; MAGNESIUM 1.7 mg/dL (1.7-2.5); SODIUM 135 mEQ/L (135-145); TOTAL PROTEIN 6.2 g/dL (6.6-8.7); URIC ACID 4.5 mg/dL (3.0-7.5)
[2016-11-11 08:03] VITALS: BP 136/77
[2016-11-11] MEDS: Phospha 250 Neutral tab ORAL SCH (09:13)
[2016-11-11] MEDS: sitaGLIPtin 50mg tab ORAL SCH (09:13)
[2016-11-11] MEDS: Heparin 5000 units/ml inj SUBQ SCH (09:18)
--- NOTE | 2016-11-11 10:51 | General Progress Note ---
Progress Note Progress Note T max 99.7 VSS. Pt is feeling well. The back abscess site is cleaning up well, some residual erythema persists. WBC was 8.1 today. He is stable for discharge from a surgical standpoint on oral antibiotics. Gautam Tovar MD Nov 11, 2016 10:51
--- NOTE | 2016-11-11 11:02 | Infectious Diseases Prog Note ---
Assessment/Plan Assessment/Plan A: This a 56-year-old male Sepsis, SP Upper back Abscess : carbuncle in the upper back Wnd Cx : MSSA SP I&D of abscess Fever, SP Leukocytosis improving HTN Obesity DM P: cont pt on IV Vanco d# 4 /14 , upon DC will change to Keflex to compl the course ( Rx in chart ) Monitor CBC Monitor BMP Monitor Cultures ( Blood ) Subjective Constitutional: Denies: anorexia, chills, drenching sweats, fatigue, fever, no symptoms, other Allergies: Coded Allergies: No Known Allergies (Verified Allergy, Mild, 01/23/07) Subjective afebrile Objective Vital Signs Last 24 Hour Vital Signs Date Time Temp Pulse Resp B/P Pulse Ox O2 Delivery O2 Flow Rate FiO2 11/11/16 08:03 98.2 91 20 136/77 95 Room Air 11/11/16 04:00 98.9 69 17 116/51 100 Room Air 11/10/16 23:20 99.3 71 18 118/54 97 Room Air 11/10/16 20:00 99.7 92 18 127/72 94 Room Air 11/10/16 16:00 97.7 80 20 119/77 95 Room Air 11/10/16 12:40 98.2 11/10/16 11:54 101.7 89 18 121/64 97 Room Air Height (Feet): 5 Height (Inches): 9.00 Weight (Pounds): 210 HEENT: anicteric Respiratory/Chest: no respiratory distress Cardiovascular: no gallop/murmur Abdomen: no organomegaly Microbiology Date/Time Source Procedure Growth Status 11/08/16 12:24 Neck Gram Stain - Final Complete 11/08/16 12:24 Wound Culture - Final Staphylococcus Aureus Complete Laboratory Tests Test 11/11/16 05:10 White Blood Count 8.1 K/UL (4.8-10.8) Red Blood Count 3.68 M/UL (4.70-6.10) L Hemoglobin 11.2 G/DL (14.2-18.0) L Hematocrit 33.0 % (42.0-52.0) L Mean Corpuscular Volume 90 FL (80-99) Mean Corpuscular Hemoglobin 30.4 PG (27.0-31.0) Mean Corpuscular Hemoglobin Concent 33.9 G/DL (32.0-36.0) Red Cell Distribution Width 12.0 % (11.6-14.8) Platelet Count 302 K/UL (150-450) Mean Platelet Volume 7.1 FL (6.5-10.1) Neutrophils (%) (Auto) 65.9 % (45.0-75.0) Lymphocytes (%) (Auto) 17.4 % (20.0-45.0) L Monocytes (%) (Auto) 10.2 % (1.0-10.0) H Eosinophils (%) (Auto) 4.2 % (0.0-3.0) H Basophils (%) (Auto) 2.4 % (0.0-2.0) H Erythrocyte Sedimentation Rate 110 MM/HR (0-20) H Sodium Level 135 mEQ/L (135-145) Potassium Level 4.0 mEQ/L (3.4-4.9) Chloride Level 93 mEQ/L (98-107) L Carbon Dioxide Level 28 mEQ/L (20-30) Anion Gap 14 (5-15) Blood Urea Nitrogen 11 mg/dL (7-23) Creatinine 1.0 mg/dL (0.7-1.2) Estimat Glomerular Filtration Rate > 60 mL/min (>60) Glucose Level 244 mg/dL (74-106) H Plasma/Serum Osmolality Pending Uric Acid 4.5 mg/dL (3.0-7.5) Calcium Level 8.0 mg/dL (8.6-10.2) L Phosphorus Level 3.0 mg/dL (2.5-4.8) Magnesium Level 1.7 mg/dL (1.7-2.5) Total Bilirubin 0.5 mg/dL (0.0-1.2) Aspartate Amino Transf (AST/SGOT) 71 U/L (5-40) H Alanine Aminotransferase (ALT/SGPT) 61 U/L (3-41) H Alkaline Phosphatase 101 U/L (40-129) C-Reactive Protein, Quantitative 13.1 mg/dL (< 0.5) H Pro-B-Type Natriuretic Peptide 564 pg/mL (0-125) H Total Protein 6.2 g/dL (6.6-8.7) L Albumin 2.8 g/dL (3.5-5.2) L Globulin 3.4 g/dL Albumin/Globulin Ratio 0.8 (1.0-2.7) L Thyroid Stimulating Hormone (TSH) 2.760 uIU/mL (0.300-4.500) Current Medications Medications (Trade) Dose Ordered Sig/Sarah Route PRN Reason Start Time Stop Time Status Last Admin Dose Admin Acetaminophen 650 mg 650 mg Q6H PRN ORAL fever 11/07/16 18:00 12/07/16 17:59 11/10/16 11:37 Albuterol/ Ipratropium (DuoNeb 0.5-3(2.5)mg/3ml) 3 ml EVERY 4 HOURS PRN HHN Shortness of Breath 11/06/16 17:45 11/11/16 17:44 Dextrose (Dextrose 50%) STAT PRN IV Hypoglycemia 11/06/16 17:45 12/06/16 17:44 Furosemide (Lasix) 10 mg EVERY 6 HOURS IV 11/09/16 12:00 12/09/16 11:59 11/11/16 06:03 Gabapentin (Neurontin) 600 mg Q8HR ORAL 11/06/16 22:00 12/06/16 21:59 11/11/16 06:03 Heparin Sodium (Porcine) (Heparin 5000 units/ml) 5,000 units EVERY 12 HOURS SUBQ 11/06/16 21:00 12/06/16 20:59 11/11/16 09:18 Insulin Aspart (NovoLOG) BEFORE MEALS AND HS SUBQ 11/06/16 21:00 12/06/16 20:59 11/11/16 06:10 Morphine Sulfate (Morphine Sulfate) 2 mg EVERY 4 HOURS PRN IVP Moderate Pain (Pain Scale 4-6) 11/06/16 17:45 11/13/16 17:44 11/11/16 01:10 Nitroglycerin (Ntg) 0.4 mg Q5M PRN SL Prn Chest Pain 11/06/16 17:45 12/06/16 17:44 Ondansetron HCl (Zofran) 4 mg Q6H PRN IVP Nausea & Vomiting 11/06/16 17:45 12/06/16 17:44 Pantoprazole (Protonix) 40 mg EVERY 12 HOURS ORAL 11/07/16 11:00 12/07/16 10:59 11/11/16 09:13 Phosphorus (Phospha 250 Neutral) 500 mg THREE TIMES A DAY ORAL 11/09/16 11:00 12/09/16 10:59 11/11/16 09:13 Polyethylene Glycol (Miralax) 17 gm DAILYPRN PRN ORAL Constipation 11/06/16 17:45 12/06/16 17:44 Promethazine HCl/ Codeine (Phenergan with Codeine) 5 ml Q6H PRN ORAL For Cough 11/06/16 23:00 12/06/16 22:59 11/10/16 19:46 Repaglinide (Prandin) 1 mg TIAC ORAL 11/10/16 11:30 12/10/16 11:29 11/11/16 06:03 Sitagliptin Phosphate (Januvia) 50 mg DAILY ORAL 11/07/16 09:00 12/07/16 08:59 11/11/16 09:13 Temazepam (Restoril) 15 mg HSPRN PRN ORAL Insomnia 11/06/16 17:45 11/13/16 17:44 11/10/16 21:46 Vancomycin HCl (Vanco rx to dose) 1 ea DAILY PRN MISC . 11/06/16 20:03 12/06/16 20:02 Vancomycin HCl/ Dextrose (Vancomycin/D5W) 275 ml @ 183.708 mls/hr Q12H IVPB 11/08/16 02:30 11/13/16 02:29 11/11/16 02:23 JESSICA DANIELS M.D. Nov 11, 2016 11:02
[2016-11-11 11:37] VITALS: BP 111/63
--- NOTE | 2016-11-11 11:59 | General Progress Note ---
Assessment/Plan Status: stable Status Narrative Na higher Assessment/Plan status: HypoNatremia: ? Depletional, Partly related to high sugar DM HTN Abscess : carbuncle in the upper back Wnd Cx : GPC Plan: DC Lasix and Phos increase prandin dose Monitor lytes and renal parameters- Keep BP and BS in check mag and Phos supplement as needed per orders discussed with RN ? DC Subjective ROS Limited/Unobtainable: No Constitutional: Reports: malaise Allergies: Coded Allergies: No Known Allergies (Verified Allergy, Mild, 01/23/07) Objective Last 24 Hour Vital Signs Date Time Temp Pulse Resp B/P Pulse Ox O2 Delivery O2 Flow Rate FiO2 11/11/16 11:37 98.4 80 20 111/63 95 Room Air 11/11/16 08:03 98.2 91 20 136/77 95 Room Air 11/11/16 04:00 98.9 69 17 116/51 100 Room Air 11/10/16 23:20 99.3 71 18 118/54 97 Room Air 11/10/16 20:00 99.7 92 18 127/72 94 Room Air 11/10/16 16:00 97.7 80 20 119/77 95 Room Air 11/10/16 12:40 98.2 Intake and Output 11/10/16 11/11/16 19:00 07:00 Intake Total 1192.500 ml 1112.500 ml Balance 1192.500 ml 1112.500 ml Intake Oral 720 ml 240 ml IV Total 472.500 ml 872.500 ml # Voids 6 6 Laboratory Tests 11/11/16 05:10: White Blood Count 8.1, Red Blood Count 3.68L, Hemoglobin 11.2L, Hematocrit 33.0L , Mean Corpuscular Volume 90, Mean Corpuscular Hemoglobin 30.4, Mean Corpuscular Hemoglobin Concent 33.9, Red Cell Distribution Width 12.0, Platelet Count 302, Mean Platelet Volume 7.1, Neutrophils (%) (Auto) 65.9, Lymphocytes (% ) (Auto) 17.4L, Monocytes (%) (Auto) 10.2H, Eosinophils (%) (Auto) 4.2H, Basophils (%) (Auto) 2.4H, Erythrocyte Sedimentation Rate 110H, Sodium Level 135 , Potassium Level 4.0, Chloride Level 93L, Carbon Dioxide Level 28, Anion Gap 14 , Blood Urea Nitrogen 11, Creatinine 1.0, Estimat Glomerular Filtration Rate > 60, Glucose Level 244H, Plasma/Serum Osmolality [Pending], Uric Acid 4.5, Calcium Level 8.0L, Phosphorus Level 3.0, Magnesium Level 1.7, Total Bilirubin 0.5, Aspartate Amino Transf (AST/SGOT) 71H, Alanine Aminotransferase (ALT/SGPT) 61H, Alkaline Phosphatase 101, C-Reactive Protein, Quantitative 13.1H, Pro-B- Type Natriuretic Peptide 564H, Total Protein 6.2L, Albumin 2.8L, Globulin 3.4, Albumin/Globulin Ratio 0.8L, Thyroid Stimulating Hormone (TSH) 2.760 Height (Feet): 5 Height (Inches): 9.00 Weight (Pounds): 210 General Appearance: no apparent distress Cardiovascular: normal rate Respiratory/Chest: decreased breath sounds Abdomen: other - obese Objective other PE not changed LEXIS GEE Nov 11, 2016 11:59
[2016-11-11] MEDS: Promethazine/Codeine 5ml UD ORAL PRN (12:30)
[2016-11-11] MEDS ORDERED: Tubing IV Secondary IV ONE (12:36)
[2016-11-11] MEDS ORDERED: Vitamin D 50,000 units cap ORAL SCH (13:00)
[2016-11-11 15:40] VITALS: BP 128/63
[2016-11-11] MEDS ORDERED: CEPHALEXIN500 MG ORAL (15:50)
--- NOTE | 2016-11-11 16:06 | Pulmonology Progress Note ---
Assessment/Plan Problems: (1) Cellulitis (2) Abscess (3) Diabetes Assessment/Plan afebrile, switch abx to po wound care repeat cultures Subjective ROS Limited/Unobtainable: No Constitutional: Reports: no symptoms HEENT: Repors: no symptoms Respiratory: Reports: no symptoms Allergies: Coded Allergies: No Known Allergies (Verified Allergy, Mild, 01/23/07) Objective Last 24 Hour Vital Signs Date Time Temp Pulse Resp B/P Pulse Ox O2 Delivery O2 Flow Rate FiO2 11/11/16 15:40 97.8 78 20 128/63 95 Room Air 11/11/16 11:37 98.4 80 20 111/63 95 Room Air 11/11/16 08:03 98.2 91 20 136/77 95 Room Air 11/11/16 04:00 98.9 69 17 116/51 100 Room Air 11/10/16 23:20 99.3 71 18 118/54 97 Room Air 11/10/16 20:00 99.7 92 18 127/72 94 Room Air Intake and Output 11/10/16 11/11/16 19:00 07:00 Intake Total 1192.500 ml 1112.500 ml Balance 1192.500 ml 1112.500 ml Intake Oral 720 ml 240 ml IV Total 472.500 ml 872.500 ml # Voids 6 6 General Appearance: WD/WN HEENT: normocephalic, atraumatic Respiratory/Chest: chest wall non-tender, lungs clear Cardiovascular: normal peripheral pulses, normal rate Abdomen: normal bowel sounds, soft, non tender Extremities: no cyanosis Skin: no rash Neurologic/Psychiatric: hardness inspector II-XII grossly normal Laboratory Tests 11/11/16 05:10: White Blood Count 8.1, Red Blood Count 3.68L, Hemoglobin 11.2L, Hematocrit 33.0L , Mean Corpuscular Volume 90, Mean Corpuscular Hemoglobin 30.4, Mean Corpuscular Hemoglobin Concent 33.9, Red Cell Distribution Width 12.0, Platelet Count 302, Mean Platelet Volume 7.1, Neutrophils (%) (Auto) 65.9, Lymphocytes (% ) (Auto) 17.4L, Monocytes (%) (Auto) 10.2H, Eosinophils (%) (Auto) 4.2H, Basophils (%) (Auto) 2.4H, Erythrocyte Sedimentation Rate 110H, Sodium Level 135 , Potassium Level 4.0, Chloride Level 93L, Carbon Dioxide Level 28, Anion Gap 14 , Blood Urea Nitrogen 11, Creatinine 1.0, Estimat Glomerular Filtration Rate > 60, Glucose Level 244H, Plasma/Serum Osmolality [Pending], Uric Acid 4.5, Calcium Level 8.0L, Phosphorus Level 3.0, Magnesium Level 1.7, Total Bilirubin 0.5, Aspartate Amino Transf (AST/SGOT) 71H, Alanine Aminotransferase (ALT/SGPT) 61H, Alkaline Phosphatase 101, C-Reactive Protein, Quantitative 13.1H, Pro-B- Type Natriuretic Peptide 564H, Total Protein 6.2L, Albumin 2.8L, Globulin 3.4, Albumin/Globulin Ratio 0.8L, Thyroid Stimulating Hormone (TSH) 2.760 Current Medications Medications (Trade) Dose Ordered Sig/Sarah Route PRN Reason Start Time Stop Time Status Last Admin Dose Admin Acetaminophen 650 mg 650 mg Q6H PRN ORAL fever 11/07/16 18:00 12/07/16 17:59 11/10/16 11:37 Albuterol/ Ipratropium (DuoNeb 0.5-3(2.5)mg/3ml) 3 ml EVERY 4 HOURS PRN HHN Shortness of Breath 11/06/16 17:45 11/11/16 17:44 Dextrose (Dextrose 50%) STAT PRN IV Hypoglycemia 11/06/16 17:45 12/06/16 17:44 Ergocalciferol (Drisdol) 50,000 intlu QWEEK ORAL 11/11/16 13:00 12/11/16 12:59 11/11/16 15:01 Gabapentin (Neurontin) 600 mg Q8HR ORAL 11/06/16 22:00 12/06/16 21:59 11/11/16 15:01 Heparin Sodium (Porcine) (Heparin 5000 units/ml) 5,000 units EVERY 12 HOURS SUBQ 11/06/16 21:00 12/06/16 20:59 11/11/16 09:18 Insulin Aspart (NovoLOG) BEFORE MEALS AND HS SUBQ 11/06/16 21:00 12/06/16 20:59 11/11/16 12:38 Morphine Sulfate (Morphine Sulfate) 2 mg EVERY 4 HOURS PRN IVP Moderate Pain (Pain Scale 4-6) 11/06/16 17:45 11/13/16 17:44 11/11/16 01:10 Nitroglycerin (Ntg) 0.4 mg Q5M PRN SL Prn Chest Pain 11/06/16 17:45 12/06/16 17:44 Ondansetron HCl (Zofran) 4 mg Q6H PRN IVP Nausea & Vomiting 11/06/16 17:45 12/06/16 17:44 Pantoprazole (Protonix) 40 mg EVERY 12 HOURS ORAL 11/07/16 11:00 12/07/16 10:59 11/11/16 09:13 Polyethylene Glycol (Miralax) 17 gm DAILYPRN PRN ORAL Constipation 11/06/16 17:45 12/06/16 17:44 Promethazine HCl/ Codeine (Phenergan with Codeine) 5 ml Q6H PRN ORAL For Cough 11/06/16 23:00 12/06/16 22:59 11/11/16 12:30 Repaglinide (Prandin) 2 mg TIAC ORAL 11/11/16 11:30 12/11/16 11:29 11/11/16 12:31 Sitagliptin Phosphate (Januvia) 50 mg DAILY ORAL 11/07/16 09:00 12/07/16 08:59 11/11/16 09:13 Temazepam (Restoril) 15 mg HSPRN PRN ORAL Insomnia 11/06/16 17:45 11/13/16 17:44 11/10/16 21:46 Vancomycin HCl (Vanco rx to dose) 1 ea DAILY PRN MISC . 11/06/16 20:03 12/06/16 20:02 Vancomycin HCl/ Dextrose (Vancomycin/D5W) 275 ml @ 183.708 mls/hr Q12H IVPB 11/08/16 02:30 11/13/16 02:29 11/11/16 15:01 SUSAN XIAO Nov 11, 2016 16:06
--- NOTE | 2016-11-12 12:37 | Discharge Summary ---
Discharge Summary Hospital Course Date of Admission Nov 06, 2016 at 16:10 Date of Discharge Nov 11, 2016 at 18:26 Admitting Diagnosis abscess/cellulitis HPI Meet Brown is a 56 year old male who was admitted on Nov 06, 2016 at 16:10 for Abcess/Cellulitis Hospital Course [id number] Discharge Discharge Disposition Patient was discharged to Home (01) Discharge Diagnoses: Alexa Irwin NP Nov 12, 2016 12:37
--- NOTE | 2016-11-13 02:30 | Discharge Summary 2 SIG ---
DATE OF ADMISSION: 11/06/2016 DATE OF DISCHARGE: 11/11/2016 CONSULTANTS: 1. Ninfa Tolentino M.D. 2. Karl Murdock M.D. 3. Raphael Mcfarlane M.D. BRIEF HOSPITAL COURSE: The patient is a 56-year-old male with two days of severe pain to mid upper back below the neck, presented to ED with skin rash/abscess and reported fever and chills at home. Workup done at ED showed fever of 102.7 degrees and was tachycardic. WBC was was elevated. Lactic acid was within normal limits. Cultures were drawn and the patient was started on IV antibiotics and was admitted for cellulitis/abscess on the upper back. He was seen by Infectious Disease specialist for antibiotic management and was started with cefepime and vancomycin. Dr. Tolentino was consulted to evaluate back abscess. It was first noted a small lump that was painful in the upper mid back. He evacuated some purulent fluid and few days after lump began to grow and became more painful with swelling of the upper extremities and shoulders. On 11/08/2016, the patient underwent incision and drainage of the upper midline back abscess. Wound was packed and dressings were placed. Wound culture showed growth of Staphylococcus Group A. He was continued on wound care with daily dressings. The patient was eventually discharged home and was advised to continue Keflex 500 mg q.6 h. for 10 more days. FINAL DIAGNOSES: 1. Sepsis. 2. Upper back abscess s/p I&D. 3. Hypertension. 4. Obesity. 5. Diabetes mellitus. DISPOSITION: The patient was discharged home. Estuardo Martinez M.D. I have been assigned to dictate discharge summary on this account and I was not involved in the patient's management. Alexa Irwin N.P. DR: BRITTANY/aishwarya JOB#: [id number] CC: CHIQUIS
== END 2016-11-11 18:26 | disposition home or self-care (01) | DRG 710 ==
LOC: EMR 12:00 → 3E 16:10 → EDBEDREQ 16:23 → 4E 21:05
PROC: 0J970ZZ Drainage of Back Subcutaneous Tissue and Fascia, Open Approach (ICD-10-PCS; principal; 2016-11-08)
DX: A41.9 Sepsis, unspecified organism (principal); E11.65 Type 2 diabetes mellitus with hyperglycemia; I10 Essential (primary) hypertension; E87.1 Hypo-osmolality and hyponatremia; E66.9 Obesity, unspecified; Z68.31 Body mass index [BMI] 31.0-31.9, adult; L02.212 Cutaneous abscess of back [any part, except buttock and flank]; L03.312 Cellulitis of back [any part except buttock and flank]; Z79.84 Long term (current) use of oral hypoglycemic drugs
CPT/HCPCS: 36415; 71010; 80053; 80061; 80202; 81001; 82248; 82550; 82962; 82977; 83036; 83605; 83735; 83880; 83930; 83935; 84100; 84300; 84443; 84550; 85025; 85651; 86140; 87040; 87070; 87081; 87181; 87205; 93970; C9399; J1815

== ENCOUNTER 2018-07-29 14:46 | Emergency (ER) | payer MEDICAID ==
[~2018-07-29] VITALS: Ht 175.3 cm; Wt 93.0 kg
[~2018-07-29 14:46] MED LIST changes: +ACETAMINOPHEN-1 EAC1 ORAL; +CLINDAMYCIN HC300 MG ORAL
[2018-07-29 15:02] VITALS: BP 150/82
--- NOTE | 2018-07-29 15:32 | Emergency Room Report ---
History of Present Illness General Chief Complaint: Multiple Trauma/Fall Source: Patient Present Illness HPI 58-year-old male patient presents the ER complaining of mechanical trip and fall 2 days ago. Reports that he was walking fell onto his left side. Complaining of left shoulder pain and head pain. Also reports pain of left wrist. Reports he is right-hand dominant. Reports no loss of range of motion wrist. Reports that he has a small abrasion on his head and left thumb. States no bleeding or laceration. Reports a brief loss conscious after the fall. Denies vomiting or vision loss. Reports that he saw an urgent care clinic yesterday however they did not have a head scan so they did not scan him; reports he did not follow-up with another clinic after seeing the first clinic yesterday and went home. Reports has taken Motrin for pain, last dose taken 2 hours prior to arrival to the ER. Denies abdominal pain. Denies other aggravating or relieving factors. Reports is right-hand dominant. Allergies: Coded Allergies: No Known Allergies (Verified Allergy, Mild, 01/23/07) Patient History Past Medical History: see triage record Reviewed Nursing Documentation: PMH: Agreed; PSxH: Agreed Nursing Documentation-PMH Past Medical History: No History, Except For Hx Cardiac Problems: Yes Hx Hypertension: Yes Hx Diabetes: Yes Hx Cancer: No Hx Gastrointestinal Problems: No Hx Neurological Problems: No Physical Exam Vital Signs Date Time Temp Pulse Resp B/P (MAP) Pulse Ox O2 Delivery O2 Flow Rate FiO2 07/29/18 14:53 97.7 80 16 158/81 98 Room Air 07/29/18 15:02 98 Sp02 EP Interpretation: reviewed, normal General Appearance: well appearing, no apparent distress, alert, GCS 15, non- toxic Head: normocephalic, atraumatic, other - Small abrasion with mild edema noted on left lateral aspect of parietal bone, no surrounding erythema, no bleeding, no laceration, no hematoma, negative grewal sign, negative raccoon eyes, no skull depression ENT: hearing grossly normal, normal pharynx, no angioedema, normal voice, TMs + canals normal, uvula midline, moist mucus membranes Neck: full range of motion, no bony tend Respiratory: lungs clear, normal breath sounds, no rhonchi, no respiratory distress, no accessory muscle use, no wheezing, speaking full sentences Cardiovascular #1: regular rate, rhythm, no edema Cardiovascular #2: 2+ radial (R), 2+ radial (L) Musculoskeletal: back normal, digits/nails normal, gait/station normal, normal range of motion, non-tender, other - Negative sulcus sign, no snuffbox tenderness,NVI, cap refill <2seconds Neurologic: alert, oriented x3, responsive, motor strength/tone normal, sensory intact Psychiatric: mood/affect normal Skin: abrasions - Multiple small abrasions, no surrounding erythema or edema, no bleeding Medical Decision Making PA Attestation Dr. Shaw is my supervising Physician whom patient management has been discussed with. Diagnostic Impression: Primary Impression: Head injury Additional Impressions: Shoulder contusion Abrasion ER Course Pt presents to ED c/o head trauma and shoulder pain sp mechanical trip and fall 2 days ago. DDX considered but are not limited to laceration, abrasion, contusion, cellulitis, ICH, skull fracture. Ordered CT of head to rule out acute pathology. VITAL SIGNS are WNL, patient is afebrile ED INTERVENTIONS: PE negative for raccoon eyes, negative Grewal sign, no hemotympanum, no skull depression. Cranial nerves intact as tested. Declined offer for x-ray of left wrist. X-ray left shoulder negative for acute disease per the preliminary reading. CT head negative for acute disease. Discuss results with the patient. Provided patient with copy of results. Instructed patient to followup with PCP and discuss results of report with patient, discuss need for further treatment and referral. Small abrasions noted, does not require laceration repair, advised to keep clean and dry. Provided with Bacitracin. Patient OK for discharge to home. Patient resting comfortably, in no acute distress, nontoxic appearing. DISCHARGE: Rx provided for Bacitracin Rx provided for Motrin At this time pt is stable for d/c to home. Patient resting comfortably, in no acute distress, nontoxic appearing, talking without difficulty. Will provide with patient care instructions and any necessary prescriptions. Patient to take medication as instructed. Care plan and follow-up instructions provided. Patient questions asked and answered. Patient reports understanding and agreement to treatment plan. ER precautions given. Patient instructed to return to ER immediately for any new or worsening of symptoms including but not limited to vision loss, intractable vomiting, worsening of RODRIGUEZ, focal neuro deficits. - Please note that this Emergency Department Report was dictated using [employer] technology software, occasionally this can lead to erroneous entry secondary to interpretation by the dictation equipment. Other X-Ray Diagnostic Results Other X-Ray Diagnostic Results : X-Ray ordered: Shoulder left # of Views/Limited Vs Complete: 3 View Indication: Pain EP Interpretation: Yes PA Xray: Interpretation reviewed, by supervising MD, and agrees with findings. Interpretation: no dislocation, no soft tissue swelling, no fractures, nonspecific bowel gas Impression: No acute disease TRENT Carmen PA-C CT/MRI/US Diagnostic Results CT/MRI/US Diagnostic Results : Imaging Test Ordered: CT head Impression No acute intracranial hemorrhage abnormality. Last Vital Signs Date Time Temp Pulse Resp B/P (MAP) Pulse Ox O2 Delivery O2 Flow Rate FiO2 07/29/18 15:02 80 16 Room Air 98 07/29/18 15:02 97.7 150/82 98 Status: improved Disposition: HOME, SELF-CARE Condition: Stable Scripts Ibuprofen* (MOTRIN*) 600 Mg Tablet 600 MG ORAL Q8H PRN for For Pain, #30 TAB 0 Refills Prov: Bienvenido Carmen 07/29/18 Bacitracin/Polymyxin B Sulfate (BACITRACIN-POLYMYXIN OINTMENT) 28.35 Gm Oint...g. 1 APPLIC TP BID, #28 GM Prov: Bienvenido Carmen 07/29/18 Patient Instructions: Abrasion, [id number], Concussion, Adult, [id number]-iy-[id number], Head Injury, Adult, Bprm-sm-Lhip, Shoulder Pain, [id number]-[id number] Additional Instructions: Follow up with primary care physician in 1 - 2 days. If you experience loss of concsiousness, vision loss or intractable vomiting, return to ED immediately. Avoid screen time. Drink plenty of fluids. Avoid alcohol/drug use, rest. Patient instructed to follow up with primary care provider and discuss further referral to orthopedics/physical therapy/pain management as needed. If unable to followup with PCP, followup with orthopedic urgent care in 5-7 days , call to schedule appointment. Patient instructed on RICE method: rest, ice, compression, elevation. Patient instructed to WBAT. Take medications as directed. Patient questions asked and answered. ER precautions given, patient instructed to return to ER immediately for any new or worsening of symptoms. [facility] [address] [facility] [address] [facility], [address] [email or web address] Bienvenido Carmen Jul 29, 2018 15:32
--- NOTE | 2018-07-29 16:25 | Diagnostic Imaging Report ---
EXAM: XR Left Shoulder Complete, 2 or More Views CLINICAL HISTORY: PAIN TECHNIQUE: Two or more views of the left shoulder. COMPARISON: No relevant prior studies available. FINDINGS: Bones/joints: No acute fracture or dislocation. Soft tissues: Unremarkable. IMPRESSION: No acute fracture or dislocation.
--- NOTE | 2018-07-29 16:27 | Diagnostic Imaging Report ---
EXAM: CT Head Without Intravenous Contrast CLINICAL HISTORY: PAIN TECHNIQUE: Axial computed tomography images of the head/brain without intravenous contrast. CTDI is 0.15, 70.38 mGy and DLP is 1354 mGy-cm. One or more of the following dose reduction techniques were used: automated exposure control, adjustment of the mA and/or kV according to patient size, use of iterative reconstruction technique. COMPARISON: No relevant prior studies available. FINDINGS: Brain: No acute intracranial hemorrhage, large area of hypoattenuation, or significant mass effect. Nonspecific areas of hypoattenuation in the periventricular white matter likely represent the sequela of chronic small vessel ischemic disease. Ventricles: Ventricular and sulcal prominence commensurate with the patient's age. Bones/joints: Unremarkable. No acute fracture. Soft tissues: Unremarkable. Sinuses: Unremarkable. Mastoid air cells: Unremarkable. IMPRESSION: No acute intracranial hemorrhage abnormality.
[2018-07-29] MEDS ORDERED: IBUPROFEN600 MG ORAL (16:39)
[2018-07-29] MEDS ORDERED: BACITRACIN-P28.35 GM TP (16:39)
[2018-07-29 16:44] VITALS: BP 145/80
== END 2018-07-29 16:44 | disposition home or self-care (01) ==
LOC: EMR 15:30
DX: S00.01XA Abrasion of scalp, initial encounter (principal); S40.012A Contusion of left shoulder, initial encounter; W01.0XXA Fall on same level from slipping, tripping and stumbling without subsequent striking against object, initial encounter; Y93.01 Activity, walking, marching and hiking; Y92.9 Unspecified place or not applicable; R51 Headache; I10 Essential (primary) hypertension; E11.9 Type 2 diabetes mellitus without complications
CPT/HCPCS: 70450; 99284

== ENCOUNTER 2019-03-29 14:58 | Emergency (ER) | payer MEDICAID ==
[~2019-03-29] VITALS: Ht 175.3 cm; Wt 92.5 kg
[~2019-03-29 14:58] MED LIST changes: +BACITRACIN-P28.35 GM TP
--- NOTE | 2019-03-29 15:20 | NUR ---
ED Nurse Note: pt unable to read any word on vision acutity test for right eye.
[2019-03-29 15:21] VITALS: BP 154/81
--- NOTE | 2019-03-29 15:25 | NUR ---
ED Nurse Note: pt walked in c/o rt eye vison loss pt awaiting ermd eval.
[2019-03-29] MEDS ORDERED: Tetracaine 0.5% Opth 4ml Soln RIGHT EYE ONE (16:00)
--- NOTE | 2019-03-29 16:08 | Emergency Room Report ---
History of Present Illness General Chief Complaint: Eye Problems Source: Medical Record (Treva Peralta) Present Illness HPI 59-year-old male with history of diabetes currently controlled with metformin here complaining of 3 months of blurry vision in right eye and 4 days of low vision and pressure in the right eye. Patient reports that he went to see his primary care today in this regard however due to being 10 minutes late to the appointment was unable to see them and was given another appointment for another 4 months. Patient is able to follow light, and see however reports low vision. denies vision change when going into dark rooms. c/o "something covering his right eye," however denies curarelike vision. Denies photophobia, eye pain, URI symptoms. Denies headache, dizziness, recent head and facial trauma. Has not taken medication for symptom relief. (Treva Peralta) Allergies: Coded Allergies: No Known Allergies (Verified Allergy, Mild, 01/23/07) Patient History Past Medical History: see triage record Past Surgical History: unable to obtain Pertinent Family History: none Immunizations: UTD Reviewed Nursing Documentation: PMH: Agreed; PSxH: Agreed (Treva Peralta) Nursing Documentation-PMH Past Medical History: No History, Except For Hx Cardiac Problems: Yes Hx Hypertension: Yes Hx Diabetes: Yes Hx Cancer: No Hx Gastrointestinal Problems: No Hx Neurological Problems: No (Treva Peralta) Review of Systems All Other Systems: negative except mentioned in HPI (Treva Peralta) Physical Exam Vital Signs Date Time Temp Pulse Resp B/P (MAP) Pulse Ox O2 Delivery O2 Flow Rate FiO2 03/29/19 15:06 98.1 74 18 154/81 (105) 96 Room Air Sp02 EP Interpretation: reviewed, normal General Appearance: no apparent distress, alert, GCS 15, non-toxic Head: normocephalic, atraumatic Eyes: bilateral eye normal inspection, bilateral eye PERRL ENT: hearing grossly normal, normal pharynx, no angioedema, normal voice Neck: full range of motion, supple/symm/no masses Respiratory: chest non-tender, lungs clear, normal breath sounds, no rhonchi, no wheezing, speaking full sentences Cardiovascular #1: regular rate, rhythm, no edema, no murmur Gastrointestinal: normal bowel sounds, non tender, soft, non-distended, no guarding, no rebound Genitourinary: no CVA tenderness Musculoskeletal: back normal, gait/station normal, normal range of motion, non- tender, calf tenderness Neurologic: alert, oriented x3, responsive, motor strength/tone normal, sensory intact, speech normal Psychiatric: judgement/insight normal, memory normal, mood/affect normal, no suicidal/homicidal ideation Skin: no rash Lymphatic: no adenopathy (Treva Peralta) Procedures Ultrasound Ultrasound : Consent: Verbal Progress Ultrasound evaluation of the right eye. No foreign bodies appreciated. No hemorrhage appreciated. Normal-appearing posterior aspect with out obvious vitreous detachment or vitreous hemorrhage. No evidence of retinal detachment. Optic nerve with a normal diameter. (Eugenio García MD) Medical Decision Making PA Attestation All diagnoses and treatment plans were reviewed and discussed with my supervising physician Dr. García (Treva Peralta) PA Attestation Oversaw the care of this patient along with TRENT Lazar Briefly, this is a 59-year-old male who presented to the evaluation of decreased right eye acuity over the past few months. Patient's vision in the right eye is significantly diminished as compared to the left but has normal extraocular movements, normal intraocular pressure, no significant trauma recently. He was sent to the emergency department as he missed his appointment with his primary care provider that was scheduled for this afternoon. A bedside ultrasound was performed showing no vitreous or retinal detachments, no hemorrhage and otherwise normal exam. Patient will be referred back to his PMD and strongly encouraged to follow-up with an network engineer administrator as well but I do not believe he requires emergent ophthalmology evaluation in the emergency department at this time. He is safe and stable for outpatient follow-up. Discussed reasons to return to the emergency department patient. (Eugenio García MD) Diagnostic Impression: Primary Impression: Low vision of right eye ER Course 59-year-old male with history of diabetes currently controlled with metformin here complaining of 3 months of blurry vision in right eye and 4 days of low vision and pressure in the right eye. Patient reports that he went to see his primary care today in this regard however due to being 10 minutes late to the appointment was unable to see them and was given another appointment for another 4 months. Patient is able to follow light, and see however reports low vision. denies vision change when going into dark rooms. c/o "something covering his right eye," however denies curarelike vision. Denies photophobia, eye pain, URI symptoms. Denies headache, dizziness, recent head and facial trauma. Has not taken medication for symptom relief. Ddx considered but are not limited to:,, Retinal detachment, diabetic retinopathy bacterial conjunctivitis, allergic conjunctivitis, viral conjunctivitis, periorbital cellulitis, global trauma Vital signs: are WNL, pt. is afebrile H&PE are most consistent with: Diabetic retinopathy, ORDERS: none required at this time, the diagnosis is clinical ED INTERVENTIONS: Use ultrasound to look for retinal detachment with the central supply assistant of , no retinal detachment noted. Patient was extremely anxious and did not allow me to properly measure eye pressure. However when I pressure was in the right eye and was within normal limits. Patient to follow- up with her primary care provider DISCHARGE: At this time pt. is stable for d/c to home. Will provide printed patient care instructions, and any necessary prescriptions. Care plan and follow up instructions have been discussed with the patient prior to discharge. Patient to follow-up with your provider tomorrow or sick referral to network engineer administrator. Patient makes an appointment with primary care as to be are in the consultation room. (Treva Peralta) Last Vital Signs Date Time Temp Pulse Resp B/P (MAP) Pulse Ox O2 Delivery O2 Flow Rate FiO2 03/29/19 15:21 98.1 18 154/81 96 Room Air 03/29/19 15:06 74 (Treva Peralta) Disposition: HOME, SELF-CARE Condition: Stable Patient Instructions: Visual Disturbances Additional Instructions: Follow-up with your primary care provider for referral to an network engineer administrator. At this time no signs of retinal detachment noted however you still need to follow-up with an network engineer administrator. Treva Peralta Mar 29, 2019 16:08 Eugenio García MD Mar 29, 2019 16:18
[2019-03-29 16:17] VITALS: BP 154/81
--- NOTE | 2019-03-29 16:18 | NUR ---
ER DISCHARGE NOTE: Patient is cleared to be discharged per ERMD, pt is aox4, on room air, with stable vital signs. pt was given dc and prescription instructions, pt was able to verbalize understanding, pt id band removed without complications. pt is able to ambulate with steady gait. pt took all belongings.
== END 2019-03-29 16:16 | disposition home or self-care (01) ==
LOC: EMR 15:52
DX: H54.62 Unqualified visual loss, left eye, normal vision right eye (principal); I10 Essential (primary) hypertension; E11.9 Type 2 diabetes mellitus without complications
CPT/HCPCS: 99283